=== PATIENT | female | born 1990 | race Caucasian/White ===

== ENCOUNTER → 2020-01-24 | Outpatient (CLI) | payer OTHER, SELFPAY ==
[2020-01-24 10:09] VITALS: BMI 26.2
[2020-01-27 13:15] LABS: HPV APTIMA, High Risk Negative (Negative)
== END | disposition home or self-care (01) ==
LOC: LABSPEC 14:00
PROVIDERS: Referring Provider Nurse Practitioner Women's Health; Visit Provider Nurse Practitioner Women's Health
DX: Z12.4 Encounter for screening for malignant neoplasm of cervix (principal)
CPT/HCPCS: 87624; 88175; G0145

== ENCOUNTER 2021-07-26 14:08 | Outpatient (CLI) | payer OTHER, SELFPAY ==
[2021-07-26 15:28] LABS: Absolute Lymphocyte Count 2.76 X10^3/uL (0.83-4.51); Absolute Neutrophil Count 4.7 X10^3/uL (2.0-7.7); Basophil# 0.05 X10^3/uL; Basophil% 0.6 % (0-1); Eosinophil# 0.16 X10^3/uL; Eosinophils% 1.9 % (0-5); Hematocrit 41.7 % (37-47); Hemoglobin 14.4 g/dL (12.0-15.0); Lymphocyte # 2.76 X10^3/ul (0.83-4.51); Lymphocyte % 33.5 % (19-41); Mean Corp Hgb Conc 34.5 g/dL (32-36); Mean Corpuscular Hgb 31.2 pg (27.0-32.0); Mean Corpuscular Volume 90.3 fL (81-99); Monocyte# 0.51 X10^3/uL; Monocyte% 6.2 % (0-10); NRBC Flagged by Analyzer 0 % (0-5); Neutrophil # 4.74 X10^3/uL (2.7-7.7); Neutrophil % 57.4 % (47-70); Platelet Count 341 K/mm3 (150-450); RBC Distribution Width CV 12.3 % (11.6-14.6); RBC Distribution Width SD 40.2 fl (35.1-43.9); Red Blood Count 4.62 M/mm3 (4.2-5.4); White Blood Count 8.3 K/mm3 (4.4-11.0)
[2021-07-26 16:08] LABS: AST(SGOT) 24 U/L (15-37); Alanine Aminotransfer ALT/SGPT 36 U/L (13-56); Albumin, Serum 3.7 g/dL (3.2-5.0); Alkaline Phosphatase 60 U/L (45-117); Anion Gap 5 (5-15); BUN 15 mg/dL (7-18); BUN/Creat Ratio 14.6 RATIO (10-20); Chloride 105 mmol/L (98-107); Cholesterol 208 mg/dL (200); Creatinine, Serum 1.03 mg/dL (0.55-1.02); EST Glomerular Filtration Rate 66 mL/min (>60); Est Glom Filt Rate - Afr Amer 80 mL/min (>60); Globulin 3.8 g/dL (2.2-4.2); Glucose 86 mg/dL (74-106); High Density Lipoprotein 72 mg/dL; Potassium 3.8 mmol/L (3.5-5.1); Protein, Total 7.5 g/dL (6.4-8.2); Sodium Level 137 mmol/L (136-145); Triglycerides 77 mg/dL; Very Low Density Lipoprotein 15 mg/dL (5-40)
== END 2021-07-26 23:59 | disposition home or self-care (01) ==
LOC: BIMLAB 14:09
PROVIDERS: PCP Internal Medicine; Referring Provider Internal Medicine; Visit Provider Internal Medicine
DX: Z00.00 Encounter for general adult medical examination without abnormal findings (principal)
CPT/HCPCS: 36415; 80053; 80061; 85025

== ENCOUNTER → 2022-03-04 | Outpatient (CLI) | payer OTHER, SELFPAY ==
--- NOTE | 2022-03-04 16:01 | BI_ITS ---
MAMMOGRAPHY - BILATERAL SCREENING REASON FOR EXAM: Female, 31 years old. Routine annual screening examination. PERTINENT HISTORY: Non-contributory. TECHNIQUE: Digital bilateral breast gina (3D mammographic acquisition) in the CC and MLO projections. 2-D mediolateral oblique (MLO) and craniocaudad (CC) views of both breasts were obtained. CAD: Full Field Digital Mammography with Computer Added Detection was performed. COMPARISON: None. Baseline examination. FINDINGS: Breast Composition: The breasts are extremely dense, which lowers the sensitivity of mammography. There are no dominant masses or suspicious calcifications. No other significant abnormalities are identified. BI/SCRN MAMM (CAD)W/GINA BILAT IMPRESSION: Negative screening mammogram. Yearly followup mammogram recommended. (A) ASSESSMENT CATEGORY: BIRADS Category 1: Negative. A letter regarding these results will be sent to the patient by the facility within 30 days. Approximately 10% of breast cancers are not detected by mammography. A normal mammogram should not delay biopsy of a clinically suspicious abnormality. [id number] Electronically Signed: Armand Herron MD at 21:22 EDT ,
== END | disposition home or self-care (01) ==
LOC: OPBI 15:58
PROVIDERS: PCP Internal Medicine; Visit Provider Obstetrics & Gynecology
DX: Z12.31 Encounter for screening mammogram for malignant neoplasm of breast (principal); Z80.3 Family history of malignant neoplasm of breast
CPT/HCPCS: 77063; 77067

== ENCOUNTER → 2022-04-22 | Outpatient (CLI) | payer OTHER, SELFPAY ==
[2022-04-22 11:46] LABS: Vitamin D,25 Hydroxy 31.9 ng/mL
[2022-04-22 11:48] LABS: Cholesterol 187 mg/dL (200); Glucose 108 mg/dL (74-106); High Density Lipoprotein 70 mg/dL; Thyroid Stim Hormone (TSH) 1.46 uIU/mL (0.358-3.74); Triglycerides 72 mg/dL; Very Low Density Lipoprotein 14 mg/dL (5-40)
== END | disposition home or self-care (01) ==
PROVIDERS: PCP Internal Medicine; Referring Provider Obstetrics & Gynecology; Visit Provider Obstetrics & Gynecology
DX: Z13.1 Encounter for screening for diabetes mellitus (principal); Z13.21 Encounter for screening for nutritional disorder; Z13.29 Encounter for screening for other suspected endocrine disorder; Z13.220 Encounter for screening for lipoid disorders
CPT/HCPCS: 36415; 80061; 82306; 82947; 84443

== ENCOUNTER → 2022-10-06 | Outpatient (CLI) | payer OTHER, SELFPAY ==
[2022-10-06 08:22] LABS: Cholesterol 181 mg/dL (200); Glucose 99 mg/dL (74-106); High Density Lipoprotein 68 mg/dL; Thyroid Stim Hormone (TSH) 1.88 uIU/mL (0.358-3.74); Triglycerides 62 mg/dL; Very Low Density Lipoprotein 12 mg/dL (5-40)
[2022-10-09 17:07] LABS: 17-Hydroxyprogesterone 123 ng/dL (.)
[2022-10-10 13:08] LABS: Testosterone, % Free 1.29 % (0.50-2.80); Testosterone, Free 0.65 ng/dL (0.10-0.85); Testosterone, Total 50 ng/dL (8-60)
== END | disposition home or self-care (01) ==
LOC: PAVLAB 07:31
PROVIDERS: PCP Internal Medicine; Referring Provider Obstetrics & Gynecology; Visit Provider Obstetrics & Gynecology
DX: N92.6 Irregular menstruation, unspecified (principal); E28.2 Polycystic ovarian syndrome
CPT/HCPCS: 36415; 80061; 82627; 82947; 83498; 84146; 84402; 84403; 84443; 82626

== ENCOUNTER → 2025-03-03 | Outpatient (CLI) | payer OTHER, SELFPAY ==
[2025-03-03 14:54] LABS: Cholesterol 197 mg/dL (<=200); Glucose 96 mg/dL (70-99); Low Density Lipoprotein Calc. 113 mg/dL; Triglycerides 74 mg/dL; Very Low Density Lipoprotein 15 mg/dL (5-40); Vitamin D,25 Hydroxy 36.2 ng/mL (30-100); cholesterol:hdl ratio screen 2.85
[2025-03-08 11:08] LABS: HPV APTIMA, High Risk Negative (Negative)
== END | disposition home or self-care (01) ==
LOC: LAB 12:53
PROVIDERS: PCP Nurse Practitioner Family; Referring Provider Obstetrics & Gynecology; Visit Provider Obstetrics & Gynecology
DX: Z13.220 Encounter for screening for lipoid disorders (principal); Z12.4 Encounter for screening for malignant neoplasm of cervix; Z13.1 Encounter for screening for diabetes mellitus; Z13.29 Encounter for screening for other suspected endocrine disorder; E28.2 Polycystic ovarian syndrome; N92.6 Irregular menstruation, unspecified
CPT/HCPCS: 36415; 80061; 82306; 82627; 82947; 84443; 87624; 88175; 82626; G0145

== ENCOUNTER → 2025-04-03 | Outpatient (CLI) | payer OTHER, SELFPAY | END | disposition home or self-care (01) | PROVIDERS: PCP Nurse Practitioner Family; Visit Provider Obstetrics & Gynecology | DX: N92.6 Irregular menstruation, unspecified (principal) | CPT/HCPCS: 36415 ==

== ENCOUNTER → 2025-04-21 | Outpatient (CLI) | payer OTHER, SELFPAY ==
--- OUTSIDE RECORDS SUMMARY | 2025-04-21 08:14 | XMS RPT_ITS | CCD ---
Author Organization [facility] CliniSynd Care Team Providers Care Powder Core Tester Name Role Phone YOSEPH COLIN Admitting Unavailable YOSEPH COLIN Attending Unavailable YOSEPH COLIN Primary Care Unavailable NO, DOCTOR ON Consulting Unavailable Dr. Irlanda Doran Primary Care Provider [phone] Jessi Carmona Attending Provider Unavailable Care Physician, No Primary Referring Provider Un available Dr. Barbara Prince Attending Provider 1([phone]) Irlanda Doran MD Primary Care Provider 1(3 30) Care Physician, No Primary Referring Provider Un available Dr. Barbara Prince Attending Provider 1(3 30) Dr. Irlanda Doran Primary Care Provider [phone] Dr. Irlanda Doran Primary Care Provider 1(33 [phone]) Dr. Irlanda Doran Referring Provider [phone] Dr. Barbara Prince Attending Provider 1(3 30) Irlanda Doran MD Primary Care Provider 1(3 30) Irlanda Doran MD Primary Care Provider [phone] Andrew DAVIS, Lilliam Brunner Unavailable Unavailable [facility] ED, Maegan T Unavailable Gillian vailable [employer] Referring Unavailable ESPINOZA, EFEWONGBE B Primary Care Unavailable [employer] Attending Unavailable GERALDINE DICKINSON Referring Unavailable OLEGHE, EFEWONGBE B Primary Care Unavailable ESPINOZA, EFEWONGBE B Primary Care Unavailable [facility] ED, Maegan T Unavailable Gillian vailagonzalez Doran MD, Dr. Denton Primary Care Physician Espinoza OSBORN, Dr. Denton Referring Provider [phone] Dr. Barbara Prince DO Attending Physician Magdy [employer], [facility] Physician [phone] Dr. Barbara Prince DO Referring Provider Barbara Prince Attending Irlanda Augustin Primary Care Unavailable Irlanda Doran Referring Unavailable [facility], [facility] UnavailBarbara Chapman Attending Barbara Zamora Referring Kelsea e [facility], [facility] Barbara Zamora Attending Kelsea e Allergies Allergy Classification Reported Allergen(s) Allergy Type Date of Onset Reaction(s) Facility (17 sources) Amoxicillin; Translations: [AMOXICILLIN] Drug Allergy 08-11-2005 [facility] Work Phone: (5 sources) Penicillins Allergy to substance 02-20-[address] [facility] (12 sources) Penicillin; Translations: [PENICILLIN] Drug Allergy 11-11-2016 [facility] (1 source) Amoxicillin Drug Allergy 03-03-2025 [facility] (1 source) Penicillins Drug allergy (disorder) 03-03-2025 [facility] Medications Current Medications Medication Drug Class(es) Dates Sig (Normalized) Sig (Original) Allgood (Nk) (5 sources) Start: 10-01-2022 Allgood (Nk) A ctive October 01, 2022 12:00am Start: 02-20-2022 Allgood (Nk) A ctive February 19, 2022 11:00pm Start: 02-20-2022 Allgood (Nk) A ctive February 20, 2022 12:00am Completed/Discontinued Medications Medication Drug Class(es) Dates Sig (Normalized) Sig (Original) 21 day ethinyl estradiol 0.128544 mg/hr / etonogestrel 0.005 mg/hr vaginal system (10 sources) Progestin, Estrogen Start: 01-24-2020 End: 07-26-2021 Etonogestrel-Ethiny l Estradiol (Nuvaring) 0.12-0.015 mg/24 hr ring Discontinued 1 NMA VAGINAL every 4 weeks 3 4 February 19, 2021 1:47pm July 26, 2021 2:48pm Polycystic ovarian syndrome Start: 01-24-2020 End: 07-26-2021 Etonogestrel-Ethinyl Estradi ol (Nuvaring) 0.12-0.015 mg/24 hr ring Discontinued 1 VAG RING VAGINAL every 4 weeks February 19, 2021 1:47pm July 26, 2021 2:48pm medroxyPROGESTERone acetate 10 mg oral tablet (11 sources) Progestin Start: 07-23-2017 End: 06-09-2024 take 1 tablet by mouth once daily Medroxyprogesterone (Provera) 10 mg tablet Discontinued 10 mg PO DAILY 10 07June 09, 2022 1:00am October 01, 2022 10:15am Comment on above: Take 1 tablet by leona th once daily. Problems Active Problems Problem Classification Problem Date Documented Da te Episodic/Chronic Immunizations and screening for infectious disease (2 sources) Needs influenza immunization; Translations: [Encounter for immunization] Episodic Menstrual disorders (20 sources) Irregular periods; Translations: [Irregular menstruation, unspecified] Onset: 05-23-2009 Resolved: 06-09-2024 01-24-2010 Chronic Other endocrine disorders (17 sources) Polycystic ovary syndrome; Translations: [Polycystic ovarian syndrome] Onset: 01-24-2010 01-24-2010 Chronic Other endocrine disorders (2 sources) Polycystic ovarian syndrome; Translations: [Polycystic ovaries] Onset: 03-10-2025 10-01-2022 Chronic Other screening for suspected conditions (not mental disorders or infectious disease) (2 sources) Cancer cervix screening status; Translations: [Encounter for screening for malignant neoplasm of cervix] Onset: 09-19-2024 06-09-2024 Episodic Residual codes; unclassified (9 sources) Family history of malignant neoplasm of breast diagnosed before 45 years of age; Translations: [Family history of malignant neoplasm of breast] Onset: 02-20-2022 01-24-2020 Episodic Comment on above: 2 first cousins age 30 Residual codes; unclassified (2 sources) Family history of breast cancer; Translations: [Family history of malignant neoplasm of breast] 06-09-2024 Episodic Residual codes; unclassified (1 source) Family history of malignant neoplasm of breast; Translations: [Family hx-breast malignancy] Onset: 09-19-2024 Episodic Past or Other Problems Problem Classification Problem Date Documented Da te Episodic/Chronic Administrative/social admission (9 sources) Patient encounter status; Translations: [Persons encountering health services in other specified circumstances] Onset: 06-09-2024 02-19-2024 Episodic Allergic reactions (10 sources) Allergy to penicillin; Translations: [Allergy status to penicillin] Onset: 12-14-2008 Resolved: 09-04-2014 08-10-2023 Episodic Other and unspecified benign neoplasm (9 sources) Benign neoplasm of skin of trunk; Translations: [Other benign neoplasm of skin of trunk] Onset: 12-14-2008 Resolved: 09-04-2014 09-04-2014 Episodic Other and unspecified benign neoplasm (9 sources) Benign neoplasm of skin of upper limb; Translations: [Other benign neoplasm of skin of unspecified upper limb, including shoulder] Onset: 12-14-2008 Resolved: 09-04-2014 09-04-2014 Episodic Other and unspecified benign neoplasm (9 sources) Benign neoplasm of skin of lower limb; Translations: [Other benign neoplasm of skin of unspecified lower limb, including hip] Onset: 12-14-2008 Resolved: 09-04-2014 09-04-2014 Episodic Other skin disorders (11 sources) Acne; Translations: [Other acne] Onset: 12-14-2008 Resolved: 06-09-2024 12-14-2008 Episodic Other skin disorders (9 sources) Disorder of skin pigmentation; Translations: [Disorder of pigmentation, unspecified] Onset: 12-14-2008 Resolved: 09-04-2014 09-04-2014 Episodic Results Test Name Value Interpretation Reference Range Facility L900.0111on 04-03-2025 REPROSOURCE SEE SCANNED REPORT Normal [facility] Comment on above: Performed By: #### L 900.0111 #### [facility] [address] [place], [address] PAP IG HPV APTIMA 16/18,45on 03-08-2025 ADEQ Comment Normal . [facility] Comment on above: Order Comment: Speci men Comment: [id number] Specimen Comment: Source.............Cervix Specimen Comment: No. of containers..01 ThinPrep Vial Result Comment: Sati sfactory for evaluation. No endocervical component is identified. Performed By: #### L 7400.0280 #### [facility] [address] [place], [place], [id number] COMM . Normal . [facility] Comment on above: Order Comment: Speci men Comment: [id number] Specimen Comment: Source.............Cervix Specimen Comment: No. of containers..01 ThinPrep Vial Performed By: #### L 7400.0280 #### [facility] [address] [place], [place], [id number] COMMENT Comment Normal . [facility] Comment on above: Order Comment: Speci men Comment: [id number] Specimen Comment: Source.............Cervix Specimen Comment: No. of containers..01 ThinPrep Vial Result Comment: This liquid based ThinPrep(R) pap test was interpreted using the M2G(R) Genius(TM) Cervical Algorithm whole slide imaging system. Performed By: #### L 7400.0280 #### [facility] [address] [place], [place], [id number] DIAG Comment Normal . [facility] Comment on above: Order Comment: Speci men Comment: [id number] Specimen Comment: Source.............Cervix Specimen Comment: No. of containers..01 ThinPrep Vial Result Comment: NEGA TIVE FOR INTRAEPITHELIAL LESION OR MALIGNANCY. Performed By: #### L 7400.0280 #### [facility] [address] [place], [place], [address] HPV APTIMA, HR Negative Normal Negative [facility] Comment on above: Order Comment: Speci men Comment: [id number] Specimen Comment: Source.............Cervix Specimen Comment: No. of containers..01 ThinPrep Vial Result Comment: This nucleic acid amplification test detects fourteen high- risk HPV types (16,18,31,33,35,39,45,51,52,56,58,59,66,68) without differentiation. Performed By: #### L 7400.0280 #### [facility] [address] [place], [address] HPV Fabby Rfx Comment Normal . [facility] Comment on above: Order Comment: Speci men Comment: [id number] Specimen Comment: Source.............Cervix Specimen Comment: No. of containers..01 ThinPrep Vial Result Comment: Crit erranjit not met, HPV Genotype not performed. Performed at: [address] [id number] High Density Finishing Operator: Emely Molina MD, Phone: [phone] Performed at: = - [address] [id number] High Density Finishing Operator: Emely Molina MD, Phone: [phone] Performed By: #### L 7400.0280 #### [facility] [address] [place], [address] PAPSMR Comment Normal . [facility] Comment on above: Order Comment: Speci men Comment: [id number] Specimen Comment: Source.............Cervix Specimen Comment: No. of containers..01 ThinPrep Vial Result Comment: The Pap smear is a screening test designed to aid in the detection of premalignant and malignant conditions of the uterine cervix. It is not a diagnostic procedure and should not be used as the sole means of detecting cervical cancer. Both false-positive and false-negative reports do occur. Performed By: #### L 7400.0280 #### [facility] [address] [place], [address] PERFORM Comment Normal . [facility] Comment on above: Order Comment: Speci men Comment: [id number] Specimen Comment: Source.............Cervix Specimen Comment: No. of containers..01 ThinPrep Vial Result Comment: Abby Lino, Physician Advisor (ASCP) Performed By: #### L 7400.0280 #### [facility] [address] [place], [place], [id number] DHEA Sulfateon 03-05-2025 DHEA SULFATE 162.0 ug/dL Normal 57.3-279.2 [facility] Comment on above: Order Comment: N Result Comment: Perf ormed at: - [facility] [id number] High Density Finishing Operator: Jose Alejandro Meza PhD, Phone: [phone] Performed By: #### L 500.4100, L501.9520, L501.0100, L3300.1500, L506.1001 #### [facility] [address] [place], [place], [id number] Calculated very low density lipoprotein (VLDL) cholesterol measurementOrdered By: Barbara Elizabeth on 03-03-2025 Calculated very low density lipoprotein (VLDL) cholesterol measurement 15 mg/dL 5-40 [facility] Cervical or vaginal specimen microscopic examination by liquid based cytology (reportOrdered By: Barbara Elizabeth on 03-03-2025 Cytology report Cyto stain.thin prep Doc (Cvx/Vag) Comment . [facility] Comment on above: Criteria not met, HP V Genotype not performed.Performed at: [facility] [id number] Director: Emely Molina MD, Phone: [phone] at: =[address] [id number] Director: Emely Molina MD, Phone: [phone] Cervical or vagninal specime n microscopic examination by cytology stain (reported asOrdered By: Barbara Elizabeth on 03-03-2025 Cytology report Cyto stain Doc (Cvx/Vag) Comment . [facility] Comment on above: The Pap smear is a s creening test designed to aid in thedetection of premalignant and malignant conditions of theuterine cervix. It is not a diagnostic procedure andshould not be used as the sole means of detecting cervicalcancer. Both false-positive and false-negative reports dooccur. Detection in cervical specim en of any of human papilloma virus (HPV) 16, 18, 31, 33,Ordered By: Barbara Elizabeth on 03-03-2025 HPV 16+18+31+33+35+39+45+5 1+52+56+58+59+66+68 DNA Probe+sig amp Ql (Cvx) Negative Negative [facility] Comment on above: This nucleic acid am plification test detects fourteen high- risk HPV types (16,18,31,33,35,39,45,51,52,56,58,59,66,68)without differentiation. Glucoseon 03-03-2025 Glucose [Mass/Vol] 96 mg/dL Normal 70-99 [facility] Comment on above: Performed By: #### L 500.4100, L501.9520, L501.0100, L3300.1500, L506.1001 #### [facility] [address] [place], [place], [id number] LDL calc ser/plasOrdered By: Barbara Elizabeth on 03-03-2025 Cholesterol in LDL [Mass/Vol] 113 mg/dL [facility] Comment on above: Gvtycblpew=276-858 m g/dL & Higher Ockr=348 mg/dL or greaterFriedwald Equation for LDL-C Laboratory - CytologyOrdered By: Barbara Elizabeth on 03-03-2025 Physician Advisor Cyto stain Nom (Cvx/Vag) [ID] Comment . [facility] Comment on above: Odalis Lino Cytolog ist (ASCP) Laboratory - Miscellaneous t estsOrdered By: Barbara Elizabeth on 03-03-2025 Service comment (Unsp spec) [Interp] . . [facility] Lipid Profileon 03-03-2025 CHOL:HDL 2.[address] [facility] Comment on above: Performed By: #### L 500.4100, L501.9520, L501.0100, L3300.1500, L506.1001 #### [facility] [address] [place], [address] Cholesterol [Mass/Vol] 197 mg/dL Normal <=200 [facility] Comment on above: Result Comment: Chol esterol level, Desirable <200 mg/dL Borderline high cholesterol 200-239 mg/dL High cholesterol >=240 mg/dL Recommendations of the NCEP Adult Treatment Panel for the following risk-cutoff thresholds for the [place] population. Performed By: #### L 500.4100, L501.9520, L501.0100, L3300.1500, L506.1001 #### [facility] [address] [place], [address] Cholesterol in HDL [Mass/Vol] 69 mg/dL Normal [facility] Comment on above: Result Comment: Natalie onal Cholesterol Education Program (NCEP) guidelines: <40 mg/dL: Low HDL-cholesterol (major risk factor for CHD) >= 60 mg/dL: High HDL-cholesterol (negative risk factor for CHD) HDL-cholesterol is affected by a number of factors, e.g. smoking, exercise, hormones, sex and age. Performed By: #### L 500.4100, L501.9520, L501.0100, L3300.1500, L506.1001 #### [facility] [address] [place], [address] Cholesterol in LDL [Mass/Vol] 113 mg/dL Normal [facility] Comment on above: Result Comment: Bord nrcceb=621-735 mg/dL Higher Wglc=931 mg/dL or greater Friedwald Equation for LDL-C Performed By: #### L 500.4100, L501.9520, L501.0100, L3300.1500, L506.1001 #### [facility] [address] [place], [address] Cholesterol in VLDL [Mass/Vol] 15 mg/dL Normal 5-40 [facility] Comment on above: Performed By: #### L 500.4100, L501.9520, L501.0100, L3300.1500, L506.1001 #### [facility] [address] [place], [address] Triglyceride [Mass/Vol] 74 mg/dL Normal [facility] Comment on above: Result Comment: The drugs N-Acetylcysteine and Metamizole may falsely depress this assay. Normal range: <150 mg/dL Borderline High: 150-199 mg/dL High: 200-499 mg/dL Very High: >500 mg/dL Performed By: #### L 500.4100, L501.9520, L501.0100, L3300.1500, L506.1001 #### [facility] [address] [place], [place], [address] No Panel InformationOrdered By: Barbara Elizabeth on 03-03-2025 Pap Smear Specimen Adequacy Comment . [facility] Comment on above: Satisfactory for shakir luation. No endocervical component is identified. Retail Salesman Office Visit Reporton 03-03-2025 Retail Salesman Office Visit Report [facility] [address], [address] [place] [address] OFFICE VISIT Date of Service: 03/03/25 MR#: [id number] Acct: [id number] Name: MAEGAN COLIN Rep #: [id number] : 1990 Provider: Dr. 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 Required: No Is patient in pain?: No Allergies amoxicillin Allergy (Mild, Verified 03/03/25 11:25) rash Penicillins Allergy (Mild, Verified 03/03/25 11:25) Unknown Medications ???Medication ???Instructions ???Recorded ???Confirmed ???Type NK 10/01/22 03/03/25 History Post menopausal: No Patient : No : No PFSH Medical History PCOS (polycystic ovarian syndrome) Family History Mother Thyroid disorder Other Breast cancer Social History Smoking Status: Never smoker alcohol intake: current alcohol intake frequency: a few times a week substance use type: does not use caffeine: Yes what type of physical activity do you participate in: walking, weight training and other frequency: 3-4 times per week seatbelt use: always do you feel safe at home: Yes additional social history: Single-Works at [employer] History 0 Elective abortions Hx Para Spontaneous abortions Hx # Term Pregnancies Ectopic pregnancies Hx # Pregnancies Multiple births # of living children HPI Encounter for routine gynecological examination Details: MAEGAN COLIN is a 34 year old who presents for annual exam. 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 has pcos and wants to get soon. She is interested in ORA and wants to get baseline labs done. Last PAP: 2023- [facility] History of abnormal PAP: yes Last mammogram: august 2023- dense breasts History of abnormal mammogram: just dense Colon cancer screening: n/a Other preventative health care screenings: followed by pcp Female Reproductive History Cycle Length: 21-35 Bleeding Duration: 5 Questions: metrorrhagia: No, sexually active: Yes, dyspareunia: No and PCB: No Menopausal Symptoms: No hot flashes, No night sweats, No weight change, No mood changes, No difficulty concentrating, No sleep problems and No change in libido ROS Const Constitutional: Reports as per HPI; Denies fatigue, increased appetite, poor appetite, night sweats, weight gain or weight loss Cardio Card: Denies chest pain Resp Resp: Denies cough or dyspnea GI GI: Reports as per HPI; Denies abdominal pain, bloating, constipation, nausea or vomiting : Reports as per HPI and other; Denies difficulty voiding, dysuria, hematuria, hot flashes, nipple discharge, pelvic pain, prolapse symptoms, urinary frequency, urinary incontinence, urinary urgency, vaginal discharge, vaginal dryness, vaginal odor or vaginal pruritus Skin Skin/Breast: Denies changing lesions, breast mass, breast pain, breast skin changes or nipple discharge Psych Psych: Denies anxiety, change in libido, depression or difficulty concentrating Exam Const General: cooperative, healthy appearing, comfortable, no acute distress, well developed and well groomed [facility] Head: normal to inspection and normocephalic Ears: hearing grossly normal bilaterally and external ears normal Nose: external nose normal Face and sinus: normal facial exam Neck Neck: normal visual inspection, full ROM and no lymphadenopathy Thyroid: thyroid normal Chest Chest palpation inspection: normal inspection of the chest Breast inspection: normal inspection of the breasts and normal inspection of the axillae Breast palpation: normal palpation of the breasts, normal palpation of the axillae and no axillary lymphadenopathy Resp Effort Inspection: normal respiratory effort GI Inspection: normal to inspection and non-distended Palpation: soft, no hepatosplenomegaly and no guarding General: bladder normal to palpation External Female Exam: normal external appearance, normal appearance of the urethra and no lesions Urethra: normal appearance of the urethra and normal palpation Speculum Exam - Vagina: normal appearance of the vagina and normal vaginal discharge Speculum Exam - Cervix: normal appearance of the cervix, no cervical discharge, no lesions and nontender Bimanual Exam- Vagina Uterus: normal bimanual exam, uterine size normal, bladder normal to palpation, No tender, uterine mobility normal, consistency normal, non-tender and no cervic (more content not included)... Normal [facility] Screening total cholesterol/ high density lipoprotein (HDL) cholesterol ratioOrdered By: Barbara Elizabeth on 03-03-2025 Cholesterol.total/Chol esterol in HDL [Mass ratio] 2.85 {ratio} [facility] Serum glucose measurement (m ass/volume)Ordered By: Barbara Elizabeth on 03-03-2025 Glucose [Mass/Vol] 96 mg/dL 70-99 [facility] Serum or plasma cholesterol in HDL measurement (mass/volume)Ordered By: Barbara Elizabeth on 03-03-2025 Cholesterol in HDL [Mass/Vol] 69 mg/dL >40 [facility] Comment on above: National Cholesterol Education Program (NCEP) guidelines:<40 mg/dL: Low HDL-cholesterol (major risk factor for CHD)>= 60 mg/dL: High HDL-cholesterol (negative risk factor for CHD)HDL-cholesterol is affected by a number of factors, e.g. smoking, exercise, hormones, sex and age. Serum or plasma cholesterol measurement (mass/volume)Ordered By: Barbara Elizabeth on 03-03-2025 Cholesterol [Mass/Vol] 197 mg/dL <201 [facility] Comment on above: Cholesterol level, D esirable <200 mg/dLBorderline high cholesterol 200-239 mg/dLHigh cholesterol >=240 mg/dLRecommendations of the NCEP Adult Treatment Panel for the following risk-cutoff thresholds for the [place] population. TSH DL <= 0.005 mIU/L QnOrde red By: Barbara Elizabeth on 03-03-2025 TSH Qn 0.977 uIU/mL 0.300-4.200 [facility] Thyroid Stim Hormone (TSH)on 03-03-2025 TSH 0.977 uIU/mL Normal 0.300-4.200 [facility] Comment on above: Performed By: #### L 500.4100, L501.9520, L501.0100, L3300.1500, L506.1001 #### [facility] [address] [place], [place], [id number] Triglycerides measurementOrd ered By: Barbara Elizabeth on 03-03-2025 Triglyceride [Mass/Vol] 74 mg/dL <199 [facility] Comment on above: The drugs N-Acetylcy steine and Metamizole may falsely depress this assay. Normal range: <150 mg/dLBorderline High: 150-199 mg/dLHigh: 200-499 mg/dLVery High: >500 mg/dL Vitamin D,25 Hydroxyon 03-03 Vitamin D 25-OH 36.2 ng/mL Normal 30-100 [facility] Comment on above: Result Comment: Josie min D Status Deficiency: <20 ng/mL (50nmol/L) Insufficiency: 20-30 ng/mL (50-75 nmol/L) Sufficiency: 30-100 ng/mL (75-250 nmol/L) Toxicity: >100 ng/mL (>250 nmol/L) Performed By: #### L 500.4100, L501.9520, L501.0100, L3300.1500, L506.1001 #### [facility] [place] [address], [address] DBT Breast - bilateral theron saunders 09-21-2024 IMPRESSION: There is no mammographic evidence of malignancy in either breast. Routine screening mammogram is recommended. Annual mammogram will be due at age 40. BI-RADS Category 1: Negative RISK: Based on the Tyrer-Cuzick (TC) risk assessment model, this patient has a 15.2% lifetime risk of developing breast cancer, meaning they are at average risk for developing breast cancer. However, this is only an estimate based on available history provided on the patient's questionnaire. We encourage all patients to talk with their providers about these results, further recommendations for managing breast health, and appropriate supplemental screening options if the patient has dense breast tissue. Interpreting Radiologist: Mary Kay Jean M.D. Resident/Fellow: Nini Llanes D.O. Electronically signed on: 09/21/2024 Film Drying Machine Operator: REI Transcrinba Date/Time: Sep 19 2024 9:29A Dictated by: NINI LLANES DO This examination was interpreted and the report reviewed and electronically signed by: MARY KAY JEAN MD on Sep 21 2024 1:20PM [facility] DIVISION OF RADIOLOGY * * *Final Report* * * DATE OF EXAM: Sep 19 2024 10:12AM [facility] 0582 - MIRANDA SCREENING W GINA / PROCEDURE REASON: multiple diagnoses * * * * Physician Interpretation * * * * RESULT: [address] [address] [place] [address] #[id number] - MIRANDA SCREENING W GINA HISTORY: 34 year-old patient seen for screening. Patient is asymptomatic in both breasts. Patient states no personal history of breast cancer. The patient has a family history of breast cancer. COMPARISON STUDIES: The present examination has been compared to a prior imaging study dated 03/04/2022 (mammogram). MAMMOGRAM TECHNIQUE: The study was acquired using full field digital technology and interpreted from soft copy. Digital Breast Tomosynthesis (DBT) images were obtained and used to assist in the interpretation of this examination. MAMMOGRAM FINDINGS: The breasts are extremely dense, which lowers the sensitivity of mammography. No suspicious masses, calcifications or other abnormalities are seen in either breast. There are no significant interval changes. DIVISION OF RADIOLOGY Provider, [facility] - 09/21/2024 * * *Final Report* * * DATE OF EXAM: Sep 19 2024 10:12AM [facility] 0582 - [facility] SCREENING W GINA / PROCEDURE REASON: multiple diagnoses * * * * Physician Interpretation * * * * RESULT: [facility] [address] [id number] #[id number] - [facility] SCREENING W GINA HISTORY: 34 year-old patient seen for screening. Patient is asymptomatic in both breasts. Patient states no personal history of breast cancer. The patient has a family history of breast cancer. COMPARISON STUDIES: The present examination has been compared to a prior imaging study dated 03/04/2022 (mammogram). MAMMOGRAM TECHNIQUE: The study was acquired using full field digital technology and interpreted from soft copy. Digital Breast Tomosynthesis (DBT) images were obtained and used to assist in the interpretation of this examination. MAMMOGRAM FINDINGS: The breasts are extremely dense, which lowers the sensitivity of mammography. No suspicious masses, calcifications or other abnormalities are seen in either breast. There are no significant interval changes. IMPRESSION IMPRESSION: There is no mammographic evidence of malignancy in either breast. Routine screening mammogram is recommended. Annual mammogram will be due at age 40. BI-RADS Category 1: Negative RISK: Based on the Tyrer-Cuzick (TC) risk assessment model, this patient has a 15.2% lifetime risk of developing breast cancer, meaning they are at average risk for developing breast cancer. However, this is only an estimate based on available history provided on the patient's questionnaire. We encourage all patients to talk with their providers about these results, further recommendations for managing breast health, and appropriate supplemental screening options if the patient has dense breast tissue. Interpreting Radiologist: Mary Kay Jean M.D. Resident/Fellow: Nini Llanes D.O. Electronically signed on: 09/21/2024 Film Drying Machine Operator: REI Transcribe Date/Time: Sep 19 2024 9:29A Dictated by: NINI LLANES DO This examination was interpreted and the report reviewed and electronically signed by: MARY KAY JEAN MD on Sep 21 2024 1:20PM EST [facility] DBT Breast - bilateral scree ningOrdered By: [facility] Provider on 09-21-2024 [facility] DBT Breast - bilateral scree diptigon 09-19-2024 Radiology Study observation (narrative) [facility] MIRANDA SCREENING W TOMOon 09-19 MIRANDA SCREENING W GINA * * *Final Report* * * DATE OF EXAM: Sep 19 2024 10:12AM [facility] 0582 - MIRANDA SCREENING W GINA / PROCEDURE REASON: multiple diagnoses * * * * Physician Interpretation * * * * RESULT: [place] [address] #[id number] - MIRANDA SCREENING W GINA HISTORY: 34 year-old patient seen for screening. Patient is asymptomatic in both breasts. Patient states no personal history of breast cancer. The patient has a family history of breast cancer. COMPARISON STUDIES: The present examination has been compared to a prior imaging study dated 03/04/2022 (mammogram). MAMMOGRAM TECHNIQUE: The study was acquired using full field digital technology and interpreted from soft copy. Digital Breast Tomosynthesis (DBT) images were obtained and used to assist in the interpretation of this examination. MAMMOGRAM FINDINGS: The breasts are extremely dense, which lowers the sensitivity of mammography. No suspicious masses, calcifications or other abnormalities are seen in either breast. There are no significant interval changes. IMPRESSION: There is no mammographic evidence of malignancy in either breast. Routine screening mammogram is recommended. Annual mammogram will be due at age 39. BI-RADS Category 1: Negative RISK: Based on the Tyrer-Cuzick (TC) risk assessment model, this patient has a 15.2% lifetime risk of developing breast cancer, meaning they are at average risk for developing breast cancer. However, this is only an estimate based on available history provided on the patient's questionnaire. We encourage all patients to talk with their providers about these results, further recommendations for managing breast health, and appropriate supplemental screening options if the patient has dense breast tissue. Interpreting Radiologist: Mary Kay Jean M.D. Resident/Fellow: Nini Llanes D.O. Electronically signed on: 09/21/2024 Film Drying Machine Operator: REI Transcrinba Date/Time: Sep 19 2024 9:29A Dictated by: NINI LLANES DO This examination was interpreted and the report reviewed and electronically signed by: MARY KAY JEAN MD on Sep 21 2024 1:20PM EST [id number] [facility] QUANTTBon 09-15-2024 QFT Criteria Comment [facility] MAIN Comment on above: Result Comment: QuantiFERON-TB Gold Plus is a qualitative indirect test for M tuberculosis infection (including disease) and is intended for use in conjunction with risk assessment, radiography, and other medical and diagnostic evaluations. The QuantiFERON-TB Gold Plus result is determined by subtracting the Nil value from either TB antigen (Ag) value. The Mitogen tube serves as a control for the test. Performed By: #### 1 [id number] #### [address] [address] QFT Mitogen Value >10.00 [facility] Comment on above: Performed By: #### 1 [id number] #### [address] [address] QFT Nil Value 0.03 IU/mL [facility] Comment on above: Performed By: #### 1 [id number] #### [address] [place] [address] QFT TB1 Ag Value 0.05 IU/mL [facility] Comment on above: Performed By: #### 1 [id number] #### [address] [address] QFT TB2 Ag Value 0.06 IU/mL [facility] Comment on above: Performed By: #### 1 [id number] #### [address] [place] [address] QFT-TB Gold Plus Clt Inc Negative Normal Negative [facility] Comment on above: Result Comment: No r esponse to M tuberculosis antigens detected. Infection with M tuberculosis is unlikely, but high risk individuals should be considered for additional testing (ATS/IDSA/CDC Clinical Practice Guidelines, 2017). The reference range is an Antigen minus Nil result of <0.35 IU/mL. The specimen received for QuantiFERON testing was incubated by the ordering institution. Specific procedures outlined in our Directory of Services and in the package insert for the QuantiFERON Gold (In Tube) test must be followed to enable for proper stimulation of cells for the production of interferon gamma. Chemiluminescence immunoassay methodology Performed At: [address] [id number] Susana Blount PhD Ph:[phone] Performed By: #### 1 [id number] #### [place] [address] HBSABon 09-13-2024 Hep B Surf Ab 228.4 mIU/mL Normal >=10.0 [facility] Comment on above: Result Comment: 0 to < 10.0 mIU/mL Nonreactive Patient is considered not to have protective immunity to HBV infection >/= 10.0 mIU/mL Reactive Patient is considered to have protective immunity to HBV infection. This assay is traceable to the World Health Organization (WHO) Hepatitis B Immunoglobulin 1st International Reference Preparation (1976). The accepted criteria for immunity to HBV is anti-HBs activity >/= 10.0 mIU/mL, as defined by the WHO International Reference Preparation. Performed By: #### H VANE HAYS VARIS, RUBIS #### [address] [address] RUBEOon 09-13-2024 Rubeola IgG Ab Positive Normal [facility] Comment on above: Result Comment: INTE RPRETATION OF RUBEOLA (MEASLES) IgG BY EIA: Negative: No detectable Measles IgG antibody. Presumed non-immune to measles virus. Positive: Measles IgG antibody Detected. Presumed immune to measles virus. If clinically indicated, order Measles IgM to rule out active infection. Equivocal: Equivocal for antibodies to Measles. Suggest repeat testing 10-14 days. Performed By: #### H VANE HAYS VARIS, RUBIS #### [address] [place] [address] RUBISon 09-13-[address] Positive Normal Positive [facility] Comment on above: Result Comment: This immune status assay detects IgM and/or IgG antibody to Rubella. Interpret results in conjunction with clinical history. POS: Antibody detected; exposure at undetermined recent or distant time. If clinically indicated, order Rubella IGM to rule out recent infection. NEG: No antibody detected. Performed By: #### H VANE HAYS VARIS, RUBIS #### [address] [address] VARISon 09-13-[address] Positive Normal [facility] Comment on above: Result Comment: INTE RPRETATION OF VARICELLA IMMUNE STATUS IgG BY EIA: Negative: No detectable VZV IgG antibody. Positive: VZV IgG antibody Detected. If clinically indicated, order Varicella IgM to rule out recent infection. Equivocal: Equivocal for antibodies to VZV. Suggest repeat testing in 10-14 days. 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 Transfer from [place] Nataly is a 33 year old who presents for an annual gynecologic exam without complaints. Getting in September, plans on trying for right away. Age at Menarche: 15 Still get period: Yes LMP: 05/09/2024 Menses: cycles every 32-35 days and 5 days of flow Menstrual flow: Moderate Bleeding amount bothersome: Yes Bleeding between periods: Yes Period symptoms: Acne, Breast tenderness, Cramps, Mood change , and Pelvic pain Sexually active: Yes Contraception: Condom Contraception frequency: Always HPV vaccine: Yes HPV:negative Pt reported neg [id number] Last pap smear: Pt reported [id number] History of abnormal pap: No Colposcopy: No. Leep: No. Cone biopsy: No. Bothersome pelvic pain: No Last mammogram: Pt reported Dx dense breast tissue unsure date. Sexually active: Yes OB History T0 L0 SAB0 IAB0 Ectopic0 Multiple0 Live Births0 Medical Accountant History LMP: 05/09/2024 (Exact Date), Having periods Age at Menarche: Age at First : Age at Menopause: Medical Accountant History Comments: Sexual Activity: Yes; Male, Female Contraception: Condom PAST MEDICAL HISTORY Diagnosis Date Irregular menstrual cycle 05/23/2009 Myopia, high Other acne PCOS (polycystic ovarian syndrome) PAST SURGICAL HISTORY Procedure Laterality Date PAST SURGICAL HISTORY OF 2006 all four wisdom teeth removed FAMILY HISTORY Problem Relation Age of Onset Thyroid Mother hypothyroid: questionable (no medication) Osteoporosis Mother Cancer Maternal Grandfather bladder Heart Paternal Grandmother heart attack Cataract Paternal Grandmother Cancer Paternal Grandfather throat Breast Cancer Other SOCIAL HISTORY Social History Tobacco Use Smoking status: Never Smokeless tobacco: Never Vaping Use Vaping status: Never Used Substance Use Topics Alcohol use: Yes Alcohol/week: 3.0 standard drinks of alcohol Types: 3 Cans of Beer (12oz) per week Comment: Occasionally Drug use: No REVIEW OF SYSTEMS Abdomen: No abdominal pain, nausea, vomiting, diarrhea, or constipation. No bloating, early satiety, indigestion, or increased flatulence. Bladder: No dysuria, gross hematuria, urinary frequency, urinary urgency, or incontinence. Breast: No breast lumps, nipple d/c, overlying skin changes, redness or skin retraction. Allergies and current medication updated:Yes SENSITIVE EXAM: The sensitive examination was discussed with the Patient or Patient's Authorized Customer Support Coordinator. As applicable, any other physician, advance practice provider, medical student, or other health professional student that will be observing or involved in the sensitive examination for educational or training purposes was discussed with the Patient or Authorized Customer Support Coordinator. The Patient or Authorized Customer Support Coordinator has agreed to proceed with the sensitive examination. (Sensitive examination includes inspection and/or palpation of the breasts, pelvis, prostate and anorectal regions). EXAM: BP 134/78 Ht 5' 8.346" (1.74m) Wt 204 lb 9.6 oz (92.8kg) LMP 05/09/2024 BMI 30.79 kg/(m2). GENERAL: pleasant, female in no apparent distress HEENT: Normocephalic, atraumatic, mucus membranes moist, and no lesions NECK: Supple, full range of motion, no adenopathy, and thyroid normal DERMATOLOGY: Normal, without lesions, non-icteric, and non-hirsute BREAST: soft, non-tender, symmetric, no dominant mass, normal nipple-areolar complex, no lymphadenopathy, and no nipple discharge CHEST: Normal inspiratory effort ABDOMEN: soft, non-tender, and no masses PELVIC: external genitalia normal, normal Bartholin's glands, urethra, [place]'s glands, no vulvar lesions, no cervical lesions, good vaginal support, physiologic discharge present, normal appearing perineal body and perianal region BIMANUAL: uterus normal size, shape and consistency, no adnexal masses, and non-tender RECTOVAGINAL: deferred. NEURO: alert and oriented x3,exam grossly non-focal EXTREMITIES: normal ASSESSMENT/PLAN: 1) Health maintenance: Pap/HPV up to date. Mammogram ordered. Nutrition, exercise and routine health maintenance exams reviewed. Calcium/Vitamin D supplementation information provided. Colon cancer screening: start at age 45 2) Contraception: condoms. Contraceptive options reviewed and information provided. 3) STD screening: Declined STD check. 4) Follow up one year or sooner as needed Suzette Stokes, EIGHT ARM OPERATOR.COUNTY TAX ASSESSOR Referrin (more content not included)... [facility] HIGH RISK HUMAN PAPILLOMA AVERY (HPV), PCR FOR DETECTION AND GENOTYPINGon 06-09-2024 HPV 16 Ag Ql (Unsp spec) Not detected Normal Not detected [facility] Comment on above: Order Comment: Speci men Type: FLUID SPECIMEN Ordering Facility: [facility] Address: [address] [place] [address] Performed By: #### H PVHRT #### [facility] CLIA [id number] [address] [place] [address] [place] [address] [place] HPV 18 Ag Ql (Unsp spec) Not detected Normal Not detected [facility] Comment on above: Order Comment: Speci men Type: FLUID SPECIMEN Ordering Facility: [facility] Address: [address] [place] [address] Performed By: #### H PVHRT #### [facility] CLIA [id number] [address] [place] [address] [place] HPV 31+33+35+39+45+51+52+5 6+58+59+66+68 DNA AMANDA+probe Ql (Cvx) Not detected Normal Not detected [facility] Comment on above: Order Comment: Speci men Type: FLUID SPECIMEN Ordering Facility: [facility] Address: [address] [place] [address] Result Comment: High Risk HPV Other Type includes HPV types 31, 33, 35, 39, 45, 51, 52, 56, 58, 59, 66 and 68. Performed By: #### H PVHRT #### [facility] CLIA [id number] [address] [place] [address] [place] PAP TESTon 06-09-2024 ADEQUACY [facility] Comment on above: Order Comment: Speci men Type: FLUID SPECIMEN Ordering Facility: [facility] Address: [address] [place] [address] Result Comment: Sati sfactory for interpretation. No endocervical component Performed By: #### L [id number] #### [facility] CLIA [id number] [address] [place] [address] [place] CASE REPORT [facility] Comment on above: Order Comment: Speci men Type: FLUID SPECIMEN Ordering Facility: [facility] Address: [address] [place] [address] Result Comment: Gyne cologic Cytology Report Case: [id number] Authorizing Provider: Suzette Stokes APRN.COUNTY TAX ASSESSOR Collected: 06/09/2024 03:04 PM Ordering Location: OB/Gynecology Received: 06/09/2024 04:46 PM First Screen: Marcelina, Araceli, CT, ASCP Pathologist: Ny Glover MD Specimen: Pap Test, ThinPrep, Cervix Performed By: #### L [id number] #### [facility] CLIA [id number] [address] [place] [address] [place] CLINICAL HISTORY, CYTOLOGY, SPORTS MEDIA Routine Exam [facility] Comment on above: Order Comment: Speci men Type: FLUID SPECIMEN Ordering Facility: [facility] Address: [address] [place] [address] Performed By: #### L [id number] #### [facility] CLIA [id number] [address] [place] [address] [place] FINAL PERFORMING LAB [facility] Comment on above: Order Comment: Speci men Type: FLUID SPECIMEN Ordering Facility: [facility] Address: [address] [place] [address] Result Comment: Tech nical component, acid filler screening performed at [facility], [address] [place], [place] [id number] CLIA# [id number] Diagnostic interpretation performed at [facility], [address] [place], [place] [address] CLIA# [id number] [employer]ery Worker: Donnie Whitmore M.D. Performed By: #### L [id number] #### [facility] CLIA [id number] [address] [place] [address] [place] INTERPRETATION, CYTOLOGY, SPORTS MEDIA Abnormal [facility] Comment on above: Order Comment: Speci men Type: FLUID SPECIMEN Ordering Facility: [facility] Address: [address] [place] [address] Result Comment: Atyp ical squamous cells of undetermined significance (ASC-US). Performed By: #### L [id number] #### [facility] CLIA [id number] [address] [place] [address] [place] LMP 05/09/2024 [facility] Comment on above: Order Comment: Speci men Type: FLUID SPECIMEN Ordering Facility: [facility] Address: [address] [place] [address] Performed By: #### L [id number] #### [facility] CLIA [id number] [address] [place] [address] [place] PAP DISCLAIMER COMMENT The Pap Smear is a screening test for cervical cancer. False negative results occur with all screening tests, emphasizing the need for rescreening at recommended intervals, and clinical correlation. [facility] Comment on above: Order Comment: Speci men Type: FLUID SPECIMEN Ordering Facility: [facility] Address: [address] [place] [address] Performed By: #### L [id number] #### [facility] CLIA [id number] [address] [place] [address] [place] PAP GENERAL CATEGORIZATION Epithelial Cell Abnormality [facility] Comment on above: Order Comment: Speci men Type: FLUID SPECIMEN Ordering Facility: [facility] Address: [address] [place] [address] Performed By: #### L [id number] #### [facility] CLIA [id number] [address] [place] [address] [place] PAP SCREW MACHINE HAND COMMENT This specimen has be en analyzed by the ThinPrep Imaging System, an automated imaging and review system, which assists the laboratory in evaluating cells on ThinPrep Pap tests. Following automated imaging, selected sampson from every slide are reviewed by a acid filler. [facility] Comment on above: Order Comment: Speci men Type: FLUID SPECIMEN Ordering Facility: [facility] Address: [address] [place] [address] Performed By: #### L [id number] #### [facility] CLIA [id number] [address] [place] [address] [place] CNOVon 02-19-2024 CNOV Office Visit (UCWSTR ) CRISTIMAEGAN ([id number]) 1990 F [facility] Date Time Provider Department 02/19/24 2:30 PM [facility] During your visit today, we recorded the following information about you: Blood pressure Weight Height 108/68 91.7 kg 1.753 m Delmer Barrera MA 02/19/2024 2:31 PM Signed Patient presents for EHP check. Blood Pressure: 108/68 Height: 5'9" Weight: 91.7 kg Delmer Barrera MA Allergies As of Date: 02/19/2024 Noted Allergy Reaction AMOXICILLIN 08/11/2005 2 - Rash PENICILLIN 11/11/2016 4 - Hives Date Reviewed: 08/10/2023 Reviewed by: Geraldine Dickinson, - Fully Assessed Reason for Visit: EHP Weight/BP/Height check [Other] Primary Visit Diagnosis:Encounter for dietary counseling and surveillance [Z71.3] Prescriptions as of 02/19/2024 - medroxyPROGESTERone (PROVERA) 10 mg tablet Take 1 tablet by mouth once daily. Problem List As Of Date 02/19/2024 Noted Resolved ACNE NEC [L70.8] 12/14/2008 NEVOCELLULAR NEVI MOLES///BENIGN CODIE SKIN TRUNK*12/14/2008 09/04/2014 NEVOCELLULAR NEVI MOLES///BENIGN CODIE SKIN ARM [*12/14/2008 09/04/2014 NEVOCELLULAR NEVI MOLES//BENIGN CODIE SKIN LEG [D*12/14/2008 09/04/2014 SOLAR LENTIGENES//DYSCHROMIA OTHER [L81.9] 12/14/2008 09/04/2014 ACTINIC DAMAGE///CHR SOLAR SKIN DAMAGE NOS [L57*12/14/2008 09/04/2014 Irregular Menstrual Cycle [N92.6] 05/23/2009 01/24/2010 PCOS (Polycystic Ovarian Syndrome) [E28.2] 01/24/2010 Oligomenorrhea [N91.5] 01/24/2010 Visit Notes: >> Delmer Barrera MA Fri Feb 19, 2024 2:30 PM Status: Signed Patient presents for EHP check. Blood Pressure: 108/68 Height: 5'9" Weight: 91.7 kg Delmer Barrera MA Encounter Status:Closed by DELMER BARRERA on 02/19/24 [facility] HEPATITIS C ANTIBODY IA WITH CONFIRMATIONon 08-12-2023 HCV Ab Ql (S) Negative Negative [facility] Basic metabolic 1999 panelon 08-11-2023 Anion gap [Moles/Vol] 12 mmol/L 9 - 18 mmol/L [facility] Calcium [Mass/Vol] 9.3 mg/dL 8.5 - 10. 2 mg/dL [facility] Chloride [Moles/Vol] 103 mmol/L 97 - 10 5 mmol/L [facility] CO2 [Moles/Vol] 27 mmol/L 22 - 30 mmol/L [facility] Creatinine [Mass/Vol] 0.96 mg/dL 0.58 - 0.96 mg/dL [facility] Estimated Glomerular Filtration Rate 80 mL/min/1.73m >=60 mL/min/1.73m [facility] Glucose [Mass/Vol] 92 mg/dL 74 - 99 mg/dL [facility] Potassium [Moles/Vol] 4.3 mmol/L 3.7 - 5.1 mmol/L [facility] Sodium [Moles/Vol] 142 mmol/L 136 - 144 mmol/L [facility] Urea nitrogen [Mass/Vol] 16 mg/dL 7 - 21 mg/dL [facility] Lipid 1995 panelon Cholesterol [Mass/Vol] 177 mg/dL <200 mg/dL [facility] Cholesterol in HDL [Mass/Vol] 59 mg/dL >39 mg/dL [facility] Cholesterol in LDL [Mass/Vol] 99 mg/dL <100 mg/dL [facility] Cholesterol in LDL/Cholesterol in HDL [Mass ratio] 1.68 {ratio} <2.54 [facility] Cholesterol in VLDL [Mass/Vol] 19 mg/dL <30 mg/dL [facility] Cholesterol non HDL [Mass/Vol] 118 mg/dL <130 mg/dL [facility] Cholesterol.total/Chol esterol in HDL [Mass ratio] 3.00 {ratio} <5.10 [facility] Fasting Time 11 hrs [facility] Triglyceride [Mass/Vol] 93 mg/dL <150 mg/dL [facility] Basophil percentageOrdered B y: Dr. Elizabeth on 10-06-2022 Cholesterol [Mass/Vol] 181 mg/dL <200 [facility] Comment on above: <200 mg/dL Desirable 200-240 mg/dL Borderline >240 mg/dL High Risk Glucose [Mass/Vol] 99 mg/dL 74-106 [facility] Triglyceride [Mass/Vol] 62 mg/dL <199 [facility] Comment on above: The drugs N-Acetylcy steine and Metamizole may falsely depress this assay.Serum Triglycerides Reference Interval Normal <150 mg/dL Borderline high 150 - 199 mg/dL High 200 - 499 mg/dL Very High > or = 500 mg/dL No Panel InformationOrdered By: Dr. Elizabeth on 10-06-2022 Thyroid Stimulating Hormone (TSH) 1.88 uIU/mL 0.358-3.74 [facility] Serum or plasma cholesterol in HDL measurement (mass/volume)Ordered By: Dr. Elizabeth on 10-06-2022 Cholesterol in HDL [Mass/Vol] 68 mg/dL >40 [facility] Comment on above: The drugs N-Acetylcy steine and Metamizole may falsely depress this assay. Reference Range HDL <40 mg/dL Low HDL Cholesterol HDL >or= 60 mg/dL High HDL Cholesterol Serum or plasma cholesterol in VLDL measurement (mass/volume)Ordered By: Dr. Elizabeth on 10-06-2022 Cholesterol in VLDL [Mass/Vol] 12 mg/dL 5-40 [facility] Serum or plasma low density lipoprotein (LDL) cholesterol measurement (mass/volume)Ordered By: Dr. Elizabeth on 10-06-2022 Cholesterol in LDL [Mass/Vol] 101 mg/dL 0-130 [facility] Serum or plasma prolactin me asurement (mass/volume)Ordered By: Dr. Elizabeth on 10-06-2022 Prolactin [Mass/Vol] 12.0 ng/mL [facility] Comment on above: NORMAL REFERENCE RAN GES FEMALE NON- 2.2 - 30.3 ng/mL 8.1 - 347.6 ng/mL POST-MENOPAUSAL 0.7 - 31.5 ng/mL MALE 2.5 - 17.4 ng/mL Basophil percentageon 2021 Cholesterol [Mass/Vol] 187 mg/dL <200 [facility] Work Phone: Comment on above: <200 mg/dL Desirable 200-240 mg/dL Borderline >240 mg/dL High Risk Glucose [Mass/Vol] 108 mg/dL 74-106 [facility] Work Phone: Comment on above: Fasting Glucose resu lt from 100 to 125 mg/dL suggests IMPAIRED HOMEOSTASIS per A.D.A. criteria. Triglyceride [Mass/Vol] 72 mg/dL <199 [facility] Work Phone: Comment on above: The drugs N-Acetylcy steine and Metamizole may falsely depress this assay.Serum Triglycerides Reference Interval Normal <150 mg/dL Borderline high 150 - 199 mg/dL High 200 - 499 mg/dL Very High > or = 500 mg/dL No Panel Informationon 04-22 Thyroid Stimulating Hormone (TSH) 1.46 uIU/mL 0.358-3.74 [facility] Work Phone: Vitamin D 25-Hydroxy 31.9 ng/mL [facility] Work Phone: Comment on above: Vitamin D 25(OH) Sta tus Range Deficiency <20 ng/mL (50nmol/L) Insufficiency 20 - 30 ng/mL (50 - 75 nmol/L) Sufficiency 30 - 100 ng/mL (75 - 250 nmol/L) Toxicity >100 ng/mL (>250 nmol/L) Serum or plasma cholesterol in HDL measurement (mass/volume)on 04-22-2022 Cholesterol in HDL [Mass/Vol] 70 mg/dL >40 [facility] Work Phone: Comment on above: The drugs N-Acetylcy steine and Metamizole may falsely depress this assay. Reference Range HDL <40 mg/dL Low HDL Cholesterol HDL >or= 60 mg/dL High HDL Cholesterol Serum or plasma cholesterol in VLDL measurement (mass/volume)on 04-22-2022 Cholesterol in VLDL [Mass/Vol] 14 mg/dL 5-40 [facility] Work Phone: Serum or plasma low density lipoprotein (LDL) cholesterol measurement (mass/volume)on 04-22-2022 Cholesterol in LDL [Mass/Vol] 103 mg/dL 0-130 [facility] Work Phone: LDHon 09-29-2019 LDH 114 U/L Normal 100 - 190 [facility] Comment on above: Performed By: #### 2 [id number] #### [facility],[address] [place] [address] LIPID PROFILEon 09-29-2019 Cholesterol [Mass/Vol] 165 mg/dL Normal 0 - 200 [facility] Comment on above: Performed By: #### 2 [id number] #### [facility],[address] [place] [address] Cholesterol in HDL [Mass/Vol] 61 mg/dL High 40 - 60 [facility] Comment on above: Performed By: #### 2 [id number] #### [facility],[address] [place] [address]687 Cholesterol in LDL [Mass/Vol] 90 mg/dL Normal 0 - 129 [facility] Comment on above: Performed By: #### 2 [id number] #### [facility],[address] [place] [address]69 Cholesterol.total/Chol esterol in HDL [Mass ratio] 2.7 {ratio} Normal 0.0 - 5.0 [facility] Comment on above: Performed By: #### 2 [id number] #### [facility],[address] [place] [address] 12904 Lipid 1996 panel Normal [facility] Comment on above: Result Comment: LIPI D PROFILE Performed By: #### 2 [id number] #### [facility],[address] [place] [address]134 Triglyceride [Mass/Vol] 68 mg/dL Normal 0 - 150 [facility] Comment on above: Performed By: #### 2 [id number] #### [facility],[address] [place] [address]180 CHEST 1 VIEWon 09-28-2019 CHEST [address] [address] Patient: MAEGAN COLIN Phone#: : 1990 Age: 29 Gender: F Pt. Type: Out Account: [id number] Location: 062 Ordering: YOSEPH CRISTI Exam Date: 09/28/2019/8:44 Family Phys: Charge Code: [id number] Physician: Bradford Order #: [id number] DLP Dose#: PROCEDURE: X-RAY CHEST 1 VIEW COMPARISON: None. INDICATIONS: Pre-employment evaluation. FINDINGS: LUNGS: Normal. No significant pulmonary parenchymal abnormalities. VASCULATURE: Normal. Unremarkable pulmonary vasculature. CARDIAC: Normal. No cardiac silhouette abnormality or cardiomegaly. MEDIASTINUM: Normal. No visible mass or adenopathy. PLEURA: Normal. No effusion or pleural thickening. BONES: Normal. No fracture or visible bony lesion. OTHER: Negative. CONCLUSION: No acute disease. Dictated by: Shakir Avila MD on 09/28/2019 at 9:01 Approved by: Shakir Avila MD on 09/28/2019 at 9:01 Normal [facility] STRESS TEST (DGEST) NO IMAGI NGon 09-28-2019 STRESS TEST (DGEST) NO IMAGING [address] [address] Patient: MAEGAN COLIN Phone#: : 1990 Age: 29 Gender: F Pt. Type: Out Account: [id number] Location: 062 Ordering: YOSEPH CRISTI Exam Date: 09/28/2019/7:15 Family Phys: NO DOCTOR Charge Code: [id number] Physician: Bradford Order #: [id number] DLP Dose#: PROCEDURE: DGEST HISTORY: Pre-employment INDICATIONS: Pre-employment physical TECHNIQUE: Electrocardiogram stress test was performed using the protocol listed below. STRESS RESULTS: Protocol: [place] Duration: 10:01minutes Reason for termination: leg fatigue Resting Heart Rate: 71 bpm. Resting Blood Pressure: 118/59 mmHg Peak Heart Rate: 184 which is 96% of maximum predicted heart rate Peak Blood Pressure: 166/69 occurred 8:59 into recovery Workload: 11.70 METs. Symptoms with stress: Patient did not complain of any chest pain with stress. Stress test was ended due to leg fatigue. EKG Data EKG at Baseline: EKG at baseline showed sinus rhythm at 66 BPM. EKG is normal EKG with Stress: EKG with stress showed sinus tachycardia at 184 BPM. There are no ST or T- wave changes to suggest inducible ischemia. CONCLUSION: 1. Patient was able to achieve good workload capacity 2. Patient did not complain of any chest pain with stress. Stress test was ended due to leg fatigue. Patient had appropriate blood pressure and heart rate response with stress. Continued Report - Page 2 of 2 Patient: MAEGAN COLIN Phone#: : 1990 Age: 29 Gender: F Pt. Type: Out Account: [id number] Location: [facility] Ordering: YOSEPHLoraine COLIN Exam Date: 09/28/2019/7:15 Family Phys: NO DOCTOR Charge Code: [id number] Physician: Bradford Order #: [id number] DLP Dose#: 3. Stress EKG is negative for inducible ischemia Approved by: AILEEN IVORY MD on 09/28/2019 at 10:46 Normal [facility] Vital Signs Date Time Vital Sign Value Performing Clinician Maurice roberts 03-03-2025 11:37-0400 Body height 175.[address] Irlanda Doran MD Work Phone: [facility] 03-03-2025 11:25-0400 Body mass index (BMI) [Ratio] 28.2 kg/m2 Dr. Irlanda Doran MD Work Phone: [facility] 03-03-2025 11:25-0400 Body weight 86.[address] Irlanda Doran MD Work Phone: [facility] 03-03-2025 11:25-0400 Diastolic blood pressure 80 mm[Hg] Dr. Irlanda Doran MD Work Phone: [facility] 03-03-2025 11:25-0400 Systolic blood pressure 124 mm[Hg] Dr. Irlanda Doran MD Work Phone: [facility] 06-09-2024 14:15-0500 Body height 173.6 cm Suzette [place] EIGHT ARM OPERATOR.COUNTY TAX ASSESSOR Work Phone: [facility] 06-09-2024 14:15-0500 Body mass index (BMI) [Ratio] 30.8 kg/m2 Suzette Divya EIGHT ARM OPERATOR.COUNTY TAX ASSESSOR Work Phone: [facility] 06-09-2024 14:15-0500 Body weight 92.81 kg Suzette Divya EIGHT ARM OPERATOR.COUNTY TAX ASSESSOR Work Phone: [facility] 06-09-2024 14:15-0500 Diastolic blood pressure 78 mm[Hg] Suzette [place] EIGHT ARM OPERATOR.COUNTY TAX ASSESSOR Work Phone: [facility] 06-09-2024 14:15-0500 Systolic blood pressure 134 mm[Hg] Suzette Divya EIGHT ARM OPERATOR.COUNTY TAX ASSESSOR Work Phone: [facility] 02-19-2024 14:27-0400 Body height 175.3 cm Nurse Wstr Work Phone: [facility] 02-19-2024 14:27-0400 Body mass index (BMI) [Ratio] 29.85 kg/m2 Nurse Wstr Work Phone: [facility] 02-19-2024 14:27-0400 Body weight 91.7 kg Nurse Wstr Work Phone: [facility] 02-19-2024 14:27-0400 Diastolic blood pressure 68 mm[Hg] Nurse Wstr Work Phone: [facility] 02-19-2024 14:27-0400 Systolic blood pressure 108 mm[Hg] Nurse Wstr Work Phone: [facility] 08-10-2023 08:30-0400 Body height 175.3 cm Geraldine Dickinson DO Work Phone: [facility] 08-10-2023 08:30-0400 Body weight 2.27 kg Geraldinekannan Dickinson DO Work Phone: [facility] 10-01-2022 10:09-0400 Body height 175.[address] Irlanda Doran Work Phone: [facility] 10-01-2022 10:08-0400 Body mass index (BMI) [Ratio] 30 kg/m2 Dr. Irlanda Doran Work Phone: [facility] 10-01-2022 10:08-0400 Body weight 92.[address] Irlanda Doran Work Phone: [facility] 10-01-2022 10:08-0400 Diastolic blood pressure 72 mm[Hg] Dr. Irladna Doran Work Phone: [facility] 10-01-2022 10:08-0400 Systolic blood pressure 114 mm[Hg] Dr. Irlanda Doran Work Phone: [facility] 03-31-2022 14:25-0400 Body temperature 97.9 [degF] Joan Bogner PA-C Work Phone: [facility] 03-31-2022 14:25-0400 Body weight 92.72 kg Joan Bogner PA-C Work Phone: [facility] 03-31-2022 14:25-0400 Diastolic blood pressure 64 mm[Hg] Joan Bogner PA-C Work Phone: [facility] 03-31-2022 14:25-0400 Heart rate 82 /min Joan Bogner PA-C Work Phone: [facility] 03-31-2022 14:25-0400 Respiratory rate 21 /min Joan Bogner PA-C Work Phone: [facility] 03-31-2022 14:25-0400 SaO2% (BldA) [Mass fraction] 97 % Joan FOOTEC Work Phone: [facility] 03-31-2022 14:25-0400 Systolic blood pressure 102 mm[Hg] Joan Patel PA-C Work Phone: [facility] 02-20-2022 08:54-0400 Body height 175.[address] Irlanda Doran Work Phone: [facility] Work Phone: 02-20-2022 08:53-0400 Body mass index (BMI) [Ratio] 30 kg/m2 Dr. Irlanda Doran Work Phone: [facility] Work Phone: 02-20-2022 08:53-0400 Body weight 92.[address] Irlanda Doran Work Phone: [facility] Work Phone: 02-20-2022 08:53-0400 Diastolic blood pressure 69 mm[Hg] Dr. Irlanda Doran Work Phone: [facility] Work Phone: 02-20-2022 08:53-0400 Systolic blood pressure 108 mm[Hg] Dr. Irlanda Doran Work Phone: [facility] Work Phone: Encounters Encounter Date Encounter Type Care Provider Facility Start: 04-03-2025 End: 04-03-2025 ambulatory Araceli Curran [facility] Facility:[facility] Start: 03-03-2025 End: 03-03-[address] Irlanda Doran MD Work Phone: -Laboratory Start: 03-03-2025 End: 03-03-[address] Barbara Carson Work Phone: Start: 03-03-2025 End: 03-03-[address] [facility] Work Phone: Start: 03-03-2025 End: 03-03-[address] Barbara Prince DO [facility] Start: 03-03-2025 End: 03-03-[address] Irlanda Doran MD Work Phone: [facility] Start: 03-03-2025 End: 03-03-2025 ambulatory Araceli Curran [facility] Facility:[facility] Start: 09-21-2024 End: 11-21-2024 Follow-up encounter Jessica New MD Work Phone: OB/Gynecology Start: 09-19-2024 ambulatory [facility] Facility: [facility] Start: 09-19-2024 End: 09-19-2024 Subsequent hospital visit by physician Screen Mammo [facility] W[facility] Mammogram Comment on above: Encounter for screen ing mammogram for malignant neoplasm of breast [Z12.31] Start: 06-14-2024 End: 06-14-2024 ambulatory [facility] Comment on above: ECOACHING WEIGHT MAN AGEMENT Start: 06-09-2024 End: 06-09-2024 ambulatory [facility] Facility:[facility] Start: 06-09-2024 End: 06-09-2024 Patient encounter procedure Suzette Stokes EIGHT ARM OPERATOR.COUNTY TAX ASSESSOR Work Phone: OB/Gynecology Comment on above: Encounter for gyneco logical examination (general) (routine) without abnormal findings (Primary Dx); Encounter to establish care; Screening for cervical cancer; Encounter for screening for human papillomavirus (HPV); Encounter for screening mammogram for malignant neoplasm of breast; Family hx-breast malignancy Start: 06-09-2024 End: 06-09-2024 Patient encounter status Suzette Stokes APRN.COUNTY TAX ASSESSOR Work Phone: [facility] Start: 04-18-2024 End: 04-19-2024 ambulatory Geraldine Dickinson DO Work Phone: [facility] Comment on above: Scheduling core analyst appt Start: 03-31-2024 End: 03-31-2024 ambulatory Lilliam Carrera MA P Coordinated Care Comment on above: WEIGHT PROBLEM Start: 02-19-2024 End: 02-19-2024 ambulatory IRLANDA DORAN Facility:[facility] Start: 02-19-2024 End: 02-19-2024 Patient encounter procedure Nurse Exp Care [facility] Work Phone: [facility] Comment on above: Encounter for dietar y counseling and surveillance (Primary Dx) Start: 02-09-2024 End: 02-18-2024 ambulatory Geraldine Dickinson DO Work Phone: [facility] Comment on above: Employee Health Plan status Start: 08-10-2023 End: 08-10-2023 ambulatory Geraldine Dickinson DO Work Phone: [facility] Comment on above: Preventative health care (Primary Dx); Special screening examination for viral disease; Allergy to penicillin Start: 08-10-2023 End: 08-10-2023 Patient encounter status Geraldine Dickinson DO Work Phone: [facility] Work Phone: Start: 08-10-2023 End: 08-10-2023 Telemedicine consultation with patient Geraldine Dickinson DO Work Phone: [facility] Start: 10-06-2022 End: 10-06-[address] Irlanda Doran Work Phone: [facility] Work Phone: Start: 10-06-2022 End: 10-06-[address] Irlanda Doran Work Phone: [facility]-Laboratory, [facility] Start: 10-01-2022 End: 10-01-[address] Irlanda Doran Work Phone: [facility] Start: 04-22-2022 End: 04-22-2022 ambulatory No Primary Care Physician [facility] Work Phone: Start: 04-22-2022 End: 04-22-2022 Patient encounter procedure No Primary Care Physician [facility] Start: 03-31-2022 End: 03-31-2022 Office outpatient new 20 minutes Joan Patel PA-C Work Phone: [facility] Comment on above: Need for influenza v accination (Primary Dx) Start: 03-04-2022 End: 03-04-[address] Irlanda Doran Work Phone: [facility] Work Phone: Start: 03-04-2022 End: 03-04-[address] Irlanda Doran Work Phone: [facility]-Outpatient Breast Imaging Start: 02-20-2022 End: 02-20-[address] Irlanda Doran Work Phone: [facility] Start: 11-28-2021 Non-patient / Non-visit Dr. Al Doran Work Phone: [facility] Internal Medicine Start: 07-26-[address] Althea Doran Work Phone: [facility] Work Phone: Start: 09-29-2019 End: 09-29-2019 Patient encounter procedure YOSEPH COLIN [facility] Procedures Date Procedure Procedure Detail Performing Clinician Start: 03-03-2025 Liquid based cervica l cytology screening Dr. Irlanda Doran MD Work Phone: Comment on above: NEGATIVE FOR INTRAEP ITHELIAL LESION OR MALIGNANCY. This liquid based Th inPrep(R) pap test was interpretedusing the M2G(R) Genius(TM) Cervical Algorithm wholeslide imaging system. Start: 03-03-2025 Dehydroepiandrostero ne sulfate level Dr. Irlanda Doran MD Work Phone: Comment on above: Performed at: [address] [place], [place] [id number] Director: Jose Alejandro Meza PhD, Phone: [phone] Start: 03-03-2025 Vitamin D, 25-hydrox y measurement Dr. Irlanda Doran MD Work Phone: Comment on above: Vitamin D StatusDefi ciency: <20 ng/mL (50nmol/L)Insufficiency: 20-30 ng/mL (50-75 nmol/L)Sufficiency: 30-100 ng/mL (75-250 nmol/L)Toxicity: >100 ng/mL (>250 nmol/L) Start: 09-19-2024 Screening digital br east tomosynthesis ariana Stokes EIGHT ARM OPERATOR.COUNTY TAX ASSESSOR Work Phone: Start: 03-31-2022 INFLUENZA VACCINE QU ADRIVALENT 6 MO - 64 YRS JOHN Patel PA-C Work Phone: Start: 03-04-2022 Screening mammography Carie Doran Work Phone: Plan of Treatment Date Care Activity Detail Author Start: 05-20-2026 Urine microalbumin profile [facility] Start: 06-09-2025 End: 06-09-2025 Patient encounter procedure 06/09/2025 3:30 PM EST Office Visit OB/Gynecology [address] [place] [address] Suzette Stokes APRN.COUNTY TAX ASSESSOR [address] [place] [address] Annual OB/Gynecology Comment on above: Annual Start: 06-09-2025 Screening for malignant neoplasm of cervix Cervical Cancer Screening [facility] Start: 03-03-2025 Thy[address] stimulating hormone measurement [facility] Start: 03-03-2025 Vitamin D, 25-hydroxy measurement [facility] Start: 09-19-2024 End: 09-19-2024 Patient encounter procedure 09/19/2024 9:30 AM EDT Appointment Mammogram [address] [place] [address] Encounter for screening mammogram for malignant neoplasm of breast [Z12.31]; Family hx-breast malignancy [Z80.3] Mammogram Comment on above: Encounter for screening mammogram for ma lignant neoplasm of breast [Z12.31]; Family hx-breast malignancy [Z80.3] Start: 06-09-2024 End: 06-09-2024 Patient encounter procedure 06/09/2024 2:00 PM EST Office Visit OB/Gynecology [address] [place] [address] Suzette Stokes APRN.COUNTY TAX ASSESSOR [address] [place] [address] annual OB/Gynecology Comment on above: annual Start: 04-22-2024 End: 04-22-2024 Patient encounter procedure 04/22/2024 7:40 AM EST [facility] [address] [place] [id number] Destini Stack MD [address] [facility] [place] [address] ?NONE Penicillin allergy consult Allergy Comment on above: ?NONE Penicillin allergy consult Start: 01-31-2024 Covid-19 Vaccine ( season) Covid-19 Vaccine () [facility] Start: 01-31-2024 Covid-19 Vaccine ( season) Covid-19 Vaccine () [facility] Start: 01-31-2024 Influenza vaccination Influenza Vaccine (#1) [facility] Start: 01-30-2023 Covid-19 Vaccine ( season) Covid-19 Vaccine () [facility] Start: 10-06-2022 17-Hydroxyprogesterone [Mass/volume] in Serum or Plasma [facility] Start: 10-06-2022 Dehydroepiandrosterone sulfate (DHEA-S) [Mass/volume] in Serum or Plasma [facility] Start: 10-06-2022 Testosterone measurement [facility] Start: 07-18-2021 COVID-19 VACCINE (4 - Booster for Moderna series) COVID-19 VACCINE (4 - Booster for Moderna series) [facility] Start: 06-01-2021 DEPRESSION ASSESSMENT DEPRESSION ASSESSMENT [facility] Start: 09-16-2020 PAP TESTING PAP TESTING [facility] Start: 09-16-2020 Screening for malignant neoplasm of cervix Pap Testing [facility] Start: 09-18-2019 HPV TESTING HPV TESTING [facility] Start: 09-18-2019 Screening for malignant neoplasm of cervix HPV Testing [facility] Start: 09-16-2018 Screening for malignant neoplasm of cervix Cervical Cancer Screening [facility] Start: 09-18-2007 Anxiety Screening Anxiety Screening [facility] Start: 09-18-2007 Depression Screening Depression Screening [facility] Start: 09-18-2007 HEPATITIS C SCREENING HEPATITIS C SCREENING [facility] Start: 09-18-2007 HIV SCREENING HIV SCREENING [facility] Start: 09-18-2007 HIV screening HIV Screening [facility] End: 07-09-2025 DBT Breast - bilateral screening MIRANDA SCREENING W [facility] Radiology Routine Encounter for screening mammogram for malignant neoplasm of breast Family hx-breast malignancy 1 Occurrences starting 06/09/2024 until 07/09/2025 [facility] Work Phone: Comment on above: 1 Occurrences starting 06/09/2024 until 07/09/2025 Dehydroepiandrostero ne sulfate (DHEA-S) [Mass/volume] in Serum or Plasma [facility] Glucose [Mass/volume ] in Serum or Plasma [facility] Work Phone: Glucose [Mass/volume ] in Serum or Plasma [facility] Lipid 1996 panel - S dee or Plasma [facility] Work Phone: Lipid 1996 panel - S dee or Plasma [facility] MG Breast - bilatera l Screening [facility] PAP TEST PAP TEST Lab Rou sridevi Encounter to establish care Encounter for gynecological examination (general) (routine) without abnormal findings Screening for cervical cancer Encounter for screening for human papillomavirus (HPV) 06/09/2024 3:04 PM EST [facility] Testosterone Free [Mass/volume] in Serum or Plasma [facility] Thyroid stimulating hormone measurement [facility] Work Phone: Vitamin D, 25-hydrox y measurement [facility] Work Phone: [facility] Immunizations Immunization Date Immunization Notes Care Provider Mehrdad martinez 03-17-2024 influenza, injectabl e, madin prerna canine kidney, preservative free Suzette Divya EIGHT ARM OPERATOR.COUNTY TAX ASSESSOR Work Phone: [facility] 03-30-2023 influenza, injectabl e, quadrivalent, contains preservative Geraldine Alejandro DO Work Phone: [facility] 03-30-2023 influenza virus vacc ine, unspecified formulation Geraldine Alejandro DO Work Phone: [facility] 03-31-2022 influenza, injectabl e, quadrivalent, contains preservative Joan Bogner PA-C Work Phone: [facility] 07-20-2020 influenza, injectabl e, quadrivalent, contains preservative Joan Bogner PA-C Work Phone: [facility] 02-23-2018 influenza, injectabl e, quadrivalent, preservative free Joan Bogner PA-C Work Phone: [facility] 01-11-2018 tuberculin skin test ; purified protein derivative solution, intradermal Geraldine Alejandro DO Work Phone: [facility] 05-20-2016 tetanus toxoid, redu jennifer diphtheria toxoid, and acellular pertussis vaccine, adsorbed Joan Bogner PA-C Work Phone: [facility] 04-02-2016 influenza, seasonal, injectable Joan Bogner PA-C Work Phone: [facility] 03-12-2016 influenza, injectabl e, quadrivalent, preservative free Joan Bogner PA-C Work Phone: [facility] 06-29-2015 influenza, injectabl e, quadrivalent, preservative free Joan Bogner PA-C Work Phone: [facility] Work Phone: 10-31-2008 meningococcal polysaccharide vaccine (MPSV4) Joan Bogner PA-C Work Phone: [facility] Work Phone: 09-28-2007 hepatitis B vaccine, pediatric or pediatric/adolescent dosage Joan Bogner PA-C Work Phone: [facility] Work Phone: 09-28-2007 human papilloma viru s vaccine, quadrivalent Joan Bogner PA-C Work Phone: [facility] Work Phone: 02-26-2007 hepatitis B vaccine, adult dosage Joan Bogner PA-C Work Phone: [facility] Work Phone: 02-26-2007 hepatitis B vaccine, pediatric or pediatric/adolescent dosage Joan Bogner PA-C Work Phone: [facility] 02-26-2007 human papilloma viru s vaccine, quadrivalent Joan Bogner PA-C Work Phone: [facility] Work Phone: 12-08-2006 hepatitis B vaccine, pediatric or pediatric/adolescent dosage Joan Bogner PA-C Work Phone: [facility] Work Phone: 12-08-2006 human papilloma viru s vaccine, quadrivalent Joan Bogner PA-C Work Phone: [facility] Work Phone: 12-08-2006 tetanus toxoid, redu jennifer diphtheria toxoid, and acellular pertussis vaccine, adsorbed Joan Bogner PA-C Work Phone: [facility] Work Phone: 11-16-2002 measles, mumps and rubella virus vaccine Joan Bogner PA-C Work Phone: [facility] 12-17-1994 diphtheria, tetanus toxoids and acellular pertussis vaccine Joan Bogner PA-C Work Phone: [facility] 12-17-1994 trivalent poliovirus vaccine, live, oral Joan Bogner PA-C Work Phone: [facility] 12-22-1990 diphtheria, tetanus toxoids and acellular pertussis vaccine Joan Bogner PA-C Work Phone: [facility] 12-22-1990 haemophilus influenz ae type b vaccine, HbOC conjugate Joan Bogner PA-C Work Phone: [facility] 12-22-1990 trivalent poliovirus vaccine, live, oral Joan Bogner PA-C Work Phone: [facility] 09-21-1990 haemophilus influenz ae type b vaccine, HbOC conjugate Joan Bogner PA-C Work Phone: [facility] 09-10-1990 measles, mumps and rubella virus vaccine Joan Bogner PA-C Work Phone: [facility] 07-16-1990 haemophilus influenz ae type b vaccine, HbOC conjugate Joan Bogner PA-C Work Phone: [facility] 07-16-1990 tuberculin skin test ; purified protein derivative solution, intradermal Geraldine Alejandro DO Work Phone: [facility] 03-26-1990 diphtheria, tetanus toxoids and acellular pertussis vaccine Joan Bogner PA-C Work Phone: [facility] 01-25-1990 diphtheria, tetanus toxoids and acellular pertussis vaccine Joan Bogner PA-C Work Phone: [facility] 01-25-1990 trivalent poliovirus vaccine, live, oral Joan Bogner PA-C Work Phone: [facility] 1989 diphtheria, tetanus toxoids and acellular pertussis vaccine Joan Bogner PA-C Work Phone: [facility] 1989 trivalent poliovirus vaccine, live, oral Joan Bogner PA-C Work Phone: [facility] Payers Date Payer Category Payer Unknown [id number] 2025 Self-pay [id number] 2023 Private Health Insurance [id number] 2023 Unknown [id number] 2019 Unknown [id number] Unknown [id number] Unknown [id number] Unknown [id number] Social History Date Type Detail Facility Start: 02-20-2022 End: 10-01-2022 Tobacco smoking status [facility] Unknown if ever smoked [facility] Start: 1990 Sex Assigned At Female [facility] Start: 05-29-2011 End: 10-01-2022 Tobacco smoking status [facility] Never smoked tobacco [facility] Start: 05-29-2011 Tobacco use and exposure Smokeless tobacco non-user [facility] Start: 03-31-2022 End: 06-09-2024 Alcohol intake Current drinker of alcohol (finding) [facility] Start: 03-31-2022 End: 08-10-2023 Alcohol intake [facility] Work Phone: Start: 06-05-2010 [facility] Start: 1990 Sex Assigned At Not on file [facility] Start: 03-21-2022 End: 03-31-2022 Exposure to SARS-CoV-2 (event) Not sure [facility] Work Phone: Start: 08-10-2023 End: 06-09-2024 Tobacco use panel [facility] Work Phone: Start: 11-18-2024 Adult Depression Screening Assessment 0 [facility] Work Phone: Start: 07-14-2023 Gender identity Identifies as female gender (finding) [facility] Functional Status Date Assessment Result Facility 09-04-2014 Are you deaf, or do you have serious difficulty hearing No 09/04/2014 8:42 AM EDT Chante Bustamante MA No [facility] 09-04-2014 Are you blind, or do you have serious difficulty seeing, even when wearing glasses No 09/04/2014 8:42 AM EDT Chante Bustamante MA No [facility] 09-04-2014 Do you have serious difficulty walking or climbing stairs No 09/04/2014 8:42 AM EDT Chante Bustamante MA No [facility] 09-04-2014 Do you have difficul ty dressing or bathing No 09/04/2014 8:42 AM EDT Chante Bustamante MA No [facility] 09-04-2014 Because of a physica l, mental, or emotional condition, do you have difficulty doing errands alone such as visiting a physician's office or shopping No 09/04/2014 8:42 AM EDT Chante Bustamante MA No [facility] Mental Status Date Assessment Result Facility 09-04-2014 Because of a physica l, mental, or emotional condition, do you have serious difficulty concentrating, remembering, or making decisions No 09/04/2014 8:42 AM EDT Chante Bustamante MA No [facility] Clinical Notes 05-23-2009 to 03-03-2025 Note Date & Type Note Facility 03-03-2025 Evaluation note Diagnosis Onset Date Resolution PCOS (polycystic ovarian syndrome) chronic March 03 11:10am Encounter for routine gynecological examination noneactive March 03 11:10am [facility] Work Phone: 1(906) 717-686304-21-2025 History of Present illness Narrative* Rema Pederson Mammo Tech - 09/19/2024 9:30 AM EDT Radiology Service Progress Note PATIENT NAME: Maegan Colin DATE OF SERVICE: September 19, 2024 TIME: 10:47 AM PATIENT IDENTITY VERIFICATION COMPLETED USING TWO (2) IDENTIFIERS: Name and Date of confirmedby patient verbally and Name and Date of confirmed by identification band. FALL SCREENING: Has the patient had 2 falls in the last year or 1 fall with injury or currently using an Ambulatory Assistive Device (Walker, Cane, Wheelchair, Crutches, etc.)? No PATIENT GENDER DATA: Assigned female at . status: : No status:NO. PATIENT RELEVANT IMPLANT DATA REVIEWED: Not Applicable PATIENT PRESENTS WITH AN IMPLANTABLE OR ATTACHED MAGISTRATE JUDGE: No RADIOLOGY DEPARTMENT: Mammography PERIPHERAL IV DATA: Not applicable SIGNED BY: Shi Scott September 19, 2024 10:47 AM documented in this encounterPromedica [facility]04-21-2025 NoteHNO ID: [id number] Author: REMA PEDERSON Mammo Tech Service: ? Author Type: Coding Compliance Specialist Type: Progress Notes Filed: 09/19/2024 10:48 Note Text: Radiology Service Progress Note PATIENT NAME: Maegan Colin DATE OF SERVICE: September 19, 2024 TIME: 10:47 AM PATIENT IDENTITY VERIFICATION COMPLETED USING TWO (2) IDENTIFIERS: Name and Date of confirmed by patient verbally and Name and Date of confirmed by identification band. FALL SCREENING: Has the patient had 2 falls in the last year or 1 fall with injury or currently using an Ambulatory Assistive Device (Walker, Cane, Wheelchair, Crutches, etc.)? No PATIENT GENDER DATA: Assigned female at . status: : No status: NO. PATIENT RELEVANT IMPLANT DATA REVIEWED: Not Applicable PATIENT PRESENTS WITH AN IMPLANTABLE OR ATTACHED MAGISTRATE JUDGE: No RADIOLOGY DEPARTMENT: Mammography PERIPHERAL IV DATA: Not applicable SIGNED BY: Shi Scott September 19, 2024 10:47 [facility]01-09-2025 NoteHNO ID: [id number] Author: SUZETTE STOKES APRN.COUNT[place] TAX ASSESSOR Service: ? 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 Transfer from [place] Nataly is a 33 year old who presents for an annual gynecologic exam without complaints. Getting in September, plans on trying for right away. Age at Menarche: 15 Still get period: Yes LMP: 05/09/2024 Menses: cycles every 32-35 days and 5 days of flow Menstrual flow: Moderate Bleeding amount bothersome: Yes Bleeding between periods: Yes Period symptoms: Acne, Breast tenderness, Cramps, Mood change , and Pelvic pain Sexually active: Yes Contraception: Condom Contraception frequency: Always HPV vaccine: Yes HPV:negative Pt reported neg [id number] Last pap smear: Pt reported [id number] History of abnormal pap: No Colposcopy: No. Leep: No. Cone biopsy: No. Bothersome pelvic pain: No Last mammogram: Pt reported Dx dense breast tissue unsure date. Sexually active: Yes OB History T0 L0 SAB0 IAB0 Ectopic0 Multiple0 Live Births0 Medical Accountant History LMP: 05/09/2024 (Exact Date), Having periods Age at Menarche: Age at First : Age at Menopause: Medical Accountant History Comments: Sexual Activity: Yes; Male, Female Contraception: Condom PAST MEDICAL HISTORY Diagnosis Date Irregular menstrual cycle 05/23/2009 Myopia, high Other acne PCOS (polycystic ovarian syndrome) PAST SURGICAL HISTORY Procedure Laterality Date PAST SURGICAL HISTORY OF 2006 all four wisdom teeth removed FAMILY HISTORY Problem Relation Age of Onset Thyroid Mother hypothyroid: questionable (no medication) Osteoporosis Mother Cancer Maternal Grandfather bladder Heart Paternal Grandmother heart attack Cataract Paternal Grandmother Cancer Paternal Grandfather throat Breast Cancer Other SOCIAL HISTORY Social History Tobacco Use Smoking status: Never Smokeless tobacco: Never Vaping Use Vaping status: Never Used Substance Use Topics Alcohol use: Yes Alcohol/week: 3.0 standard drinks of alcohol Types: 3 Cans of Beer (12oz) per week Comment: Occasionally Drug use: No REVIEW OF SYSTEMS Abdomen: No abdominal pain, nausea, vomiting, diarrhea, or constipation. No bloating, early satiety, indigestion, or increased flatulence. Bladder: No dysuria, gross hematuria, urinary frequency, urinary urgency, or incontinence. Breast: No breast lumps, nipple d/c, overlying skin changes, redness or skin retraction. Allergies and current medication updated:Yes SENSITIVE EXAM: The sensitive examination was discussed with the Patient or Patient's Authorized Customer Support Coordinator. As applicable, any other physician, advance practice provider, medical student, or other health professional student that will be observing or involved in the sensitive examination for educational or training purposes was discussed with the Patient or Authorized Customer Support Coordinator. The Patient or Authorized Customer Support Coordinator has agreed to proceed with the sensitive examination. (Sensitive examination includes inspection and/or palpation of the breasts, pelvis, prostate and anorectal regions). EXAM: BP 134/78 Ht 5' 8.346" (1.74m) Wt 204 lb 9.6 oz (92.8kg) LMP 05/09/2024 BMI 30.79 kg/(m2). GENERAL: pleasant, female in no apparent distress HEENT: Normocephalic, atraumatic, mucus membranes moist, and no lesions NECK: Supple, full range of motion, no adenopathy, and thyroid normal DERMATOLOGY: Normal, without lesions, non-icteric, and non-hirsute BREAST: soft, non-tender, symmetric, no dominant mass, normal nipple-areolar complex, no lymphadenopathy, and no nipple discharge CHEST: Normal inspiratory effort ABDOMEN: soft, non-tender, and no masses PELVIC: external genitalia normal, normal Bartholin's glands, urethra, [place]'s glands, no vulvar lesions, no cervical lesions, good vaginal support, physiologic discharge present, normal appearing perineal body and perianal region BIMANUAL: uterus normal size, shape and consistency, no adnexal masses, and non-tender RECTOVAGINAL: deferred. NEURO: alert and oriented x3,exam grossly non-focal EXTREMITIES: normal ASSESSMENT/PLAN: 1) Health maintenance: Pap/HPV up to date. Mammogram ordered. Nutrition, exercise and routine health maintenance exams reviewed. Calcium/Vitamin D supplementation information provided. Colon cancer screening: start at age 45 2) Contraception: condoms. Contraceptive options reviewed and information provided. 3) STD screening: Declined STD check. 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 Transfer from [place] is a 33 year old who presents for an annual gynecologic exam without complaints. Getting in September, plans on trying for right away. Age at Menarche: 15 Still get period: Yes LMP: 05/09/2024 Menses: cycles every 32-35 days and 5 days of flow Menstrual flow: Moderate Bleeding amount bothersome: Yes Bleeding between periods: Yes Period symptoms: Acne, Breast tenderness, Cramps, Mood change , and Pelvic pain Sexually active: Yes Contraception: Condom Contraception frequency: Always HPV vaccine: Yes HPV:negative Pt reported neg [id number] Last pap smear: Pt reported [id number] History of abnormal pap: No Colposcopy: No. Leep: No. Cone biopsy: No. Bothersome pelvic pain: No Last mammogram: Pt reported Dx dense breast tissue unsure date. Sexually active: Yes OB History T0 L0 SAB0 IAB0 Ectopic0 Multiple0 Live Births0 Medical Accountant History LMP: 05/09/2024 (Exact Date), Having periods Age at Menarche: Age at First : Age at Menopause: Medical Accountant History Comments: Sexual Activity: Yes; Male, Female Contraception: Condom PAST MEDICAL HISTORY Diagnosis Date Irregular menstrual cycle 05/23/2009 Myopia, high Other acne PCOS (polycystic ovarian syndrome) PAST SURGICAL HISTORY Procedure Laterality Date PAST SURGICAL HISTORY OF 2006 all four wisdom teeth removed FAMILY HISTORY Problem Relation Age of Onset Thyroid Mother hypothyroid: questionable (no medication) Osteoporosis Mother Cancer Maternal Grandfather bladder Heart Paternal Grandmother heart attack Cataract Paternal Grandmother Cancer Paternal Grandfather throat Breast Cancer Other SOCIAL HISTORY Social History Tobacco Use Smoking status: Never Smokeless tobacco: Never Vaping Use Vaping status: Never Used Substance Use Topics Alcohol use: Yes Alcohol/week: 3.0 standard drinks of alcohol Types: 3 Cans of Beer (12oz) per week Comment: Occasionally Drug use: No REVIEW OF SYSTEMS Abdomen: No abdominal pain, nausea, vomiting, diarrhea, or constipation. No bloating, early satiety, indigestion, or increased flatulence. Bladder: No dysuria, gross hematuria, urinary frequency, urinary urgency, or incontinence. Breast: No breast lumps, nipple d/c, overlying skin changes, redness or skin retraction. Allergies and current medication updated:Yes SENSITIVE EXAM: The sensitive examination was discussed with the Patient or Patient's Authorized Customer Support Coordinator. As applicable, any other physician, advance practice provider, medical student, or other health professional student that will be observing or involved in the sensitive examination for educational or training purposes was discussed with the Patient or Authorized Customer Support Coordinator. The Patient or Authorized Customer Support Coordinator has agreed to proceed with the sensitive examination. (Sensitive examination includes inspection and/or palpation of the breasts, pelvis, prostate and anorectal regions). EXAM: BP 134/78 Ht 5' 8.346" (1.74m) Wt 204 lb 9.6 oz (92.8kg) LMP 05/09/2024 BMI 30.79 kg/(m^2). GENERAL: pleasant, female in no apparent distress HEENT: Normocephalic, atraumatic, mucus membranes moist, and no lesions NECK: Supple, full range of motion, no adenopathy, and thyroid normal DERMATOLOGY: Normal, without lesions, non-icteric, and non-hirsute BREAST: soft, non-tender, symmetric, no dominant mass, normal nipple-areolar complex, no lymphadenopathy, and no nipple discharge CHEST: Normal inspiratory effort ABDOMEN: soft, non-tender, and no masses PELVIC: external genitalia normal, normal Bartholin's glands, urethra, [place]'s glands, no vulvar lesions, no cervical lesions, good vaginal support, physiologic discharge present, normal appearing perineal body and perianal region BIMANUAL: uterus normal size, shape and consistency, no adnexal masses, and non-tender RECTOVAGINAL: deferred. NEURO: alert and oriented x3,exam grossly non-focal EXTREMITIES: normal ASSESSMENT/PLAN: 1) Health maintenance: Pap/HPV up to date. Mammogram ordered. Nutrition, exercise and routine health maintenance exams reviewed. Calcium/Vitamin D supplementation information provided. Colon cancer screening: start at age 45 2) Contraception: condoms. Contraceptive options reviewed and information provided. 3) STD screening: Declined STD check. 4) Follow up one year or sooner as needed Suzette Stokes APRN.JAIDEN documented in this encounterProm[facility]11-[facility] Telephone encounter Note * Telephone Encounter - Mary Reyes - 04/19/2024 10:45 AM EST Left VM for pt to CB and schedule with [facility]. [facility]11-19-2024 Miscellaneous Notes* Telephone Encounter - Mary Reyes - 04/19/2024 10:45 AM EST Left VM for pt to CB and schedule with [facility]. documented in this encounterPromedica [facility]10-31-2024 Miscellaneous Notes* [facility] Outreach Note - Lilliam Morales RN - 03/31/2024 12:02 PM EDT Change from Enrolling to Open Enrolling in Weight Management Program for 2024 program year Earned No discount for 2024 Transfer to Yessi Diaz MA once enrollment complete Needs updated Blood Pressure reading for 2024 program year Needs 2024 weight loss goal set Needs 2024 Weight Welcome letter sent 2024 Weight goal Set 02/19/2024 91.7 kg (202 lb 2.6 oz) [facility] Height 5'9" 2024 Weight goal: BMI goal set based on weight documented on 02/19/2024 of 202 lbs. Weight goal to reach between 01/13/2025 - 02/28/2025 is pounds. MEDICATIONS PER RX DATABASE None Adherent with medication refills N/A Date Verified 03/31/2024 Is member submitting receipts for Reimbursement N/A Is member eligible for medication reimbursement No Is Employee Health Plan primary Yes Member resides in [facility] 2024 Wt goal lbs BMI Points Diagnosis of Coronary Artery Disease No Last 3 Encounter BP Readings: Date: BP: 02/19/2024 108/68 03/31/2022 102/64 01/11/2018 110/80 LDL Cholesterol (mg/dL) Date Value 08/11/2023 99 03/26/2015 75 No results found for: "LDLCHOLDIR" LDL:HDL RATIO Applies to members that are diet and Exercise controlled LDL:HDL RATIO does not apply to members on a statin LDL:HDL Ratio Date Value Ref Range Status 08/11/2023 1.68 <2.54 Final Comment: Reference: 1. National Cholesterol Education Program ATP III Guideline At-A-Glance Quick Desk Reference: National Heart, Lung, and Blood [place]. National Institutes of Health. 2001: NIH Publication No. 01-3305. 2. An International Atherosclerosis Society position paper: global recommendations for the management of dyslipidemia: executive summary, Atherosclerosis. 2014: 232(2):410-413. Diabetic Screening Hemoglobin A1C (%) Date Value 03/26/2015 5.4 documented in this encounterPromedica [facility]10-31-2024 Note* [facility] Outreach Note - Lilliam Morales RN - 03/31/2024 12:02 PM EDT Change from Enrolling to Open Enrolling in Weight Management Program for 2024 program year Earned No discount for 2024 Transfer to Ysesi Diaz MA once enrollment complete Needs updated Blood Pressure reading for 2024 program year Needs 2024 weight loss goal set Needs 2024 Weight Welcome letter sent 2024 Weight goal Set 02/19/2024 91.7 kg (202 lb 2.6 oz) [facility] Height 5'9" 2024 Weight goal: BMI goal set based on weight documented on 02/19/2024 of 202 lbs. Weight goal to reach between 01/13/2025 - 02/28/2025 is pounds. MEDICATIONS PER RX DATABASE None Adherent with medication refills N/A Date Verified 03/31/2024 Is member submitting receipts for Reimbursement N/A Is member eligible for medication reimbursement No Is Employee Health Plan primary Yes Member resides in [facility] 2024 Wt goal lbs BMI Points Diagnosis of Coronary Artery Disease No Last 3 Encounter BP Readings: Date: BP: 02/19/2024 108/68 03/31/2022 102/64 01/11/2018 110/80 LDL Cholesterol (mg/dL) Date Value 08/11/2023 99 03/26/2015 75 No results found for: "LDLCHOLDIR" LDL:HDL RATIO Applies to members that are diet and Exercise controlled LDL:HDL RATIO does not apply to members on a statin LDL:HDL Ratio Date Value Ref Range Status 08/11/2023 1.68 <2.54 Final Comment: Reference: 1. National Cholesterol Education Program ATP III Guideline At-A-Glance Quick Desk Reference: National Heart, Lung, and Blood [place]. National Institutes of Health. 2001: NIH Publication No. 01-3305. 2. An International Atherosclerosis Society position paper: global recommendations for the management of dyslipidemia: executive summary, Atherosclerosis. 2014: 232(2):410-413. Diabetic Screening Hemoglobin A1C (%) Date Value 03/26/2015 5.4 [facility]09-20-2024 Nurse Note* Delmer Barrera MA - 02/19/2024 2:30 PM EDT Patient presents for EHP check. Blood Pressure: 108/68 Height: 5'9" Weight: 91.7 kg Delmer Barrera MA [facility]09-20-2024 Nurse Note* Delmer Barrera MA - 02/19/2024 2:30 PM EDT Patient presents for EHP check. Blood Pressure: 108/68 Height: 5'9" Weight: 91.7 kg Delmer Barrera MA documented in this encounterPromed[facility]2024 Telephone encounter Note * Telephone Encounter - Ignacia Pena MA - 02/16/2024 4:37 PM EDT Items addressed in this encounter: Telephone Encounter Attempted to reach patient no answer LVM for patient to sign into [employer] and read the messages Ignacia Pena MA February 16, 2024 4:37 PM 4:37 PM [facility]2024 Miscellaneous Notes* Telephone Encounter - Ignacia Pena MA - 02/16/2024 4:37 PM EDT Items addressed in this encounter: Telephone Encounter Attempted to reach patient no answer LVM for patient to sign into [employer] and read the messages Ignacia Pena MA February 16, 2024 4:37 PM 4:37 PM * Telephone Encounter - Geraldine Dickinson DO - 02/16/2024 3:11 PM EDT Patient has not read [employer] messages. Can you please try to reach her and leave message * Telephone Encounter - Ignacia Pena MA - 02/09/2024 10:04 AM EDT Items addressed in this encounter: Telephone Encounter MyChart Encounter Attempt to reach patient no answer sent mychart message patient need express care visit to have weight height and BP documented for EHP form to be completed Ignacia Pena MA February 09, 2024 10:11 AM 10:11 AM documented in this encounterProm[facility] Tele[facility] encounter Note * Telephone Encounter - Geraldine Dickinson DO - 02/16/2024 3:11 PM EDT Patient has not read Heat[employer] messages. Can you please try to reach her and leave message [facility]09-10-[facility]24 Telephone encounter Note* Telephone Encounter - Ignacia Pena MA - 02/09/2024 10:04 AM EDT Items addressed in this encounter: Telephone Encounter MyChart Encounter Attempt to reach patient no answer sent mychart message patient need express care visit to have weight height and BP documented for EHP form to be completed Ignacia Pena MA February 09, 2024 10:11 AM 10:11 AM [facility]03-11-2024 Instructions* Patient Instructions* Geraldine Dickinson DO - 08/10/2023 10:00 AM EDT Employee Assistance Program Have A Problem? We're Available and Listening! No cost, short-term counseling for eligible caregivers & dependents: [phone] or [phone] The EAP provides confidential assessment, short-term counseling and referral services for issues that are important to you and your family. There is No Cost for counseling sessions and services offered by the program. All benefit eligible employees and their immediate family members residing in their household are eligible to use the program. Age restrictions exist for children/adolescents under 18, call for more details. Unexpected events such as grief, , risk to safety, and organizational transitions, occur in the workplace and can disrupt employees ability to perform their duties. In such times, the EAP is available to provide immediate and follow-up support to affected employees in a variety of ways. EAP clinicians are trained on Critical Incident Response (CIR) and can be on-site to support employees when requested. CIR services: Facilitation of workplace grief or trauma caused by grief, , or risk of safety, and emotional stress caused by reorganizations or other workplace transitions Crisis intervention for groups or individuals Stress management education to increase coping skills Support and guidance for managing crisis response with organization s policies with resiliency and compassion For consultation and support, please contact the EAP at [phone] or page [phone] documented in this encounterPromedica [facility]03-[facility]24 History of Present illness Narrative* Geraldine Dickinson DO - 08/10/2023 9:38 AM EDT Telemedicine Visit - Distance Health Virtual Visit Note Patient seen on [employer] Video Visit platform. Location of patient: [place] PCP: Irlanda Doran MD History of Present Illness Maegan Colin is a 32 year old female who presents for preventative care. - Looking to establish with a PCP EHP Form: - Needs EHP form filled out - Currently weighs about 190 lbs - Denies h/o HTN, h/o diabetes, h/o HLD, h/o asthma, h/o nicotine use PCOS: - Needs to establish with OBGYN - Take progesterone to induce her period, was told to wait 10 days after she is supposed to have her cycle to take the progesterone - Was initially on hormonal control in the past but did not like the way it made her feel PAST MEDICAL HISTORY Diagnosis Date Irregular menstrual cycle 05/23/2009 Myopia, high Other acne PCOS (polycystic ovarian syndrome) PAST SURGICAL HISTORY Procedure Laterality Date PAST SURGICAL HISTORY OF 2006 all four wisdom teeth removed FAMILY HISTORY Problem Relation Age of Onset Cancer Maternal Grandfather bladder Cancer Paternal Grandfather throat Heart Paternal Grandmother heart attack Cataract Paternal Grandmother Thyroid Mother hypothyroid: questionable (no medication) Osteoporosis Mother other (Other) Mother Breast Cancer Other Social History Tobacco Use Smoking status: Never Smokeless tobacco: Never Substance Use Topics Alcohol use: Yes Alcohol/week: 3.0 standard drinks of alcohol Types: 3 Cans of Beer (12oz) per week Comment: Occasionally Drug use: No - 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 (Patient not taking: Reported on 03/31/2022) No current facility-administered medications for this visit. ALLERGIES Allergen Reactions Amoxicillin Rash Penicillin Hives Video Exam (Examination performed via Video enabled technology) General appearance: Alert, oriented, pleasant, in NAD :Yes Ill appearing :No Lethargic appearing :No Respiratory distress :No PHQ-9 PHQ-9 Scores 05/20/2016 08/10/2023 Little interest or pleasure in doing things Not at all Not at all Feeling down, depressed, or hopeless Not at all Not at all Assessment/Plan: 1. Preventative health care - ICD9: V70.0, ICD10: Z00.00 (primary diagnosis) - CONSULT TO ASSEMBLER FINAL - LIPID PANEL BASIC - BASIC METABOLIC PNL - Pt needs EHP form completed. Will get biometrics done at [facility] and will send [employer] message when complete. 2. Special screening examination for viral disease - ICD9: V73.99, ICD10: Z11.59 - HEPATITIS C ANTIBODY IA WITH CONFIRMATION 3. Allergy to penicillin - ICD9: V14.0, ICD10: Z88.0 - CONSULT TO PENICILLIN ALLERGY - Red flags discussed for need for in person care - All questions answered I have communicated my name and active licensure. The patient's identity and physical location wereverified at the time of this visit. Either the patient or their legal security systems sales representative has been informed of the risks and benefits of -- and alternatives to -- treatment through a remote evaluation andconsents to proceed with the evaluation remotely. Scribe Attestation: By signing my name below, IPita, attest that this documentation has been prepared under the direction and in the presence of Geraldine Dickinson D.O. Electronically Signed: Pita Annaibalthea. August 10, 2023 9:38 AM. Physician Attestation: IGeraldine DO, personally performed the services described in this documentation. All medical record entries made by the scribe were at my direction and in my presence. I have reviewed the chart and discharge instructions (if applicable) and agree that the record reflects my personal performance and is accurate and complete. Electronically Signed: Geraldine Dickinson DO. * Mahogany Wright RN - 08/10/2023 8:37 AM EDT Items addressed in this encounter: Other VV pre check, name and location verified, aware of tele health visit with A DO Mahogany Dickinson RN August 10, 2023 8:37 AM 8:37 AM documented in this encounterPromedica [facility]11-01-2022 History of Present illness Narrative* Joan Patel PA-C - 04/01/2022 9:36 AM EDT 04/01/2022 Patient presents with: flu shot Immunizations: Flu vaccination SUBJECTIVE: This is a 31 year old that is here today for Above Complaints Patient needs flu vaccination today. Patient is feeling well without other concern. PAST MEDICAL HISTORY Diagnosis Date Irregular menstrual cycle 05/23/2009 Myopia, high Other acne PCOS (polycystic ovarian syndrome) ALLERGIES Amoxicillin and Penicillin MEDICATIONS Current Outpatient Medications Medication Sig medroxyPROGESTERone (PROVERA) 10 mg tablet Take 1 tablet by mouth once daily. (Patient not taking: Reported on 03/31/2022) No current facility-administered medications for this visit. SOCIAL HISTORY Social History Tobacco Use Smoking status: Never Smokeless tobacco: Never Substance Use Topics Alcohol use: Yes Alcohol/week: 7.5 standard drinks Types: 3 Cans of Beer (12oz) per week Comment: Occasionally Drug use: No REVIEW OF SYSTEMS See HPI OBJECTIVE: BP 102/64 Pulse 82 Temp 36.6 C (97.9 F) Resp 21 Wt 92.7 kg (204 lb 6.4 oz) LMP 10/08/2016(Exact Date) SpO2 97% BMI 30.18 kg/m APPEARANCE Well appearing, alert, in no acute distress, well-hydrated, well nourished. documented in this encounterPromedica [facility]12-23-2009 History of Past illness Narrative* Problem Noted Date Resolved Date Irregular menstrual cycle 05/23/20092009 NEVOCELLULAR NEVI MOLES///BENIGN CODIE SKIN TRUNK 12/14/2008 09/04/2014 NEVOCELLULAR NEVI MOLES///BENIGN CODIE SKIN ARM 09/04/2014 NEVOCELLULAR NEVI MOLES//BENIGN CODIE SKIN LEG 09/04/2014 SOLAR LENTIGENES//DYSCHROMIA OTHER 12/14/2008 09/04/2014 ACTINIC DAMAGE///CHR SOLAR SKIN DAMAGE NOS 12/1409/04/2014 documented as of this encounter (statuses as of 04/01/2022) [facility] History of Past illness Narrative* Problem Noted Date Diagnosed Date Resolved Date Irregular menstrual cycle 05/23/2009 NEVOCELLULAR NEVI MOLES///BE NIGN CODIE SKIN TRUNK 12/14/2008 09/04/2014 NEVOCELLULAR NEVI MOLES///BENIGN CODIE SKIN ARM 12/15/19 09 09/04/2014 NEVOCELLULAR NEVI MOLES//BENIGN CODIE SKIN LEG 200 9 09/04/2014 SOLAR LENTIGENES//DYSCHROMIA OTHER 12/14/2008 09/04/2014 ACTINIC DAMAGE///CHR SOLAR SKIN DAMAGE NOS 12/14/2008 09/04/2014 documented as of this encounter (statuses as of 08/12/2023) [facility] note* Diagnosis Onset Date Resolution Status Encounter for routine gynecological examination noneactive [facility] Work Phone: evaluation note* Diagnosis Need for influenza vaccination- Primary Need for prophylactic vaccination and inoculation against influenza documented in this encounter [facility] note* Diagnosis Onset Date Resolution Status PCOS (polycystic ovarian syndrome) chronic [facility] Work Phone: evaluation note* Diagnosis Preventative health care- Primary Routine general medical examination at a health care facility Special screening examination for viral disease Special screening examination for unspecified viral disease Allergy to penicillin Personal history of allergy to penicillin documented in this encounter [facility] note* Diagnosis Encounter for dietary counseling and surveillance- Primary Dietary surveillance and counseling documented in this encounter [facility] note* Diagnosis Encounter to establish care- Primary Other reasons for seeking consultation documented in this encounter [facility] note* Diagnosis Encounter for gynecological examination (general) (routine) without abnormal findings- Primary Encounter to establish care Other reasons for seeking consultation Screening for cervical cancer Screening for malignant neoplasm of the cervix Encounter for screening for human papillomavirus (HPV) Special screening examination for human papillomavirus (HPV) Encounter for screening mammogram for malignant neoplasm of breast Other screening mammogram Family hx-breast malignancy Family history of malignant neoplasm of breast documented in this encounter [facility] note* Diagnosis Encounter for screening mammogram for malignant neoplasm of breast Other screening mammogram Family hx-breast malignancy Family history of malignant neoplasm of breast documented in this encounter [facility] note* Diagnosis Onset Date Resolution Status Admit Date Encounter for routine gynecological examination noneactive Octobe r 2024 11:10am [place] [employer] Work Phone: Reason for referral (narrative)* Diagnostic Procedure Only (Routine) - Authorized Specialty Diagnoses / Procedures Referred By Sylvia rinaldi Referred To Contact [facility] Diagnoses Encounter for screening mammogram for malignant neoplasm of breast Family hx-breast malignancy Procedures MIRANDA SCREENING W GINA SCREENING DIGITAL BREAST TOMOSYNTHESIS BI SCREENING MAMMOGRAPHY BI 2-VIEW BREAST INC Suzette Babcock, [place] [employer] ASS[employer] [address] [place] [address] [facility] [place] [address] Referral ID Status Reason Start Date Expiration Date Visits Requested Visits Authorized [id number] Authorized Auto-Generat ed Referral 06/09/2024 07/09/2025 1 1 [facility] for referral (narrative)No reason for referral information availableFranciscan Health [facility] Work Phone: Reason for visit Narrative* Diagnostic Procedure Only (Routine) - Closed Specialty Diagnoses / Procedures Referred By Contac t Referred To Contact [facility] Diagnoses Encounter for screening mammogram for malignant neoplasm of breast Family hx-breast malignancy Procedures MIRANDA SCREENING W GINA SCREENING DIGITAL BREAST TOMOSYNTHESIS BI SCREENING MAMMOGRAPHY BI 2-VIEW BREAST INC Suzette Babcock APRN.CNP [address] [place] [address] Phone: tel: fax: [place] [address] Referral ID Status Reason Start Date Expiration Date V isits Requested Visits Authorized [id number] Closed Auto-Generate d Referral 06/09/2024 07/09/2025 1 1 [facility] Summary Purpose Family History No Family History Records Found Relationship Condition Age at Onset Recorded Date/T sanjana Not Specified Malignant neoplasm of breast Unknown mother Disorder of thyroid Unknown Advance Directives No Advanced Directives Records FoundNo Advanced Directives Records FoundNo Advanced Directives Records FoundNo Advanced Directives Records Found Chief Complaint and Reason for Visit Chief Complaint Amb Documentation Annual (SPORTS MEDIA) SCREENING, FAMILY HISTORY Reason for Visit Encounter for routin e gynecological examination Chief Complaint Annual (SPORTS MEDIA) SCREENING, FAMILY HISTORY INT ORDERS Reason for Visit Encounter for routin e gynecological examination Chief Complaint Consult PCOS/fertili ty Reason for Visit PCOS (polycystic ova jae syndrome) Chief Complaint Admit Date Annual (SPORTS MEDIA) March 03, 2025 11 :10am Reason for Visit Admit Date Encounter for routine gynecological exam ination March 03, 2025 11:10am Chief Complaint Admit Date Annual (SPORTS MEDIA) March 03, 2025 11 :10am [place] March 03, 2025 12 :48pm Reason for Visit Admit Date PCOS (polycystic ovarian syndrome) Octob 2024 11:10am Encounter for routine gynecological exam ination March 03, 2025 11:10am Reason for Referral Specialty Diagnoses / Procedures Referred By Sylvia rinaldi Referred To Contact Diagnoses Preventative health care Procedures CONSULT TO ASSEMBLER FINAL OFFICE/OUTPATIENT [facility] 60 MINUTES Geraldine Dickinson, [address] [place] [address] Referral ID Status Reason Start Date Expiration Date Visits Requested Visits Authorized [id number] Authorized PCP Requested Referral Auto-Generate d Referral 08/10/2023 08/09/2024 1 1 Specialty Diagnoses / Procedures Referred By Sylvia rinadli Referred To Contact Diagnoses Encounter to establish care Procedures CONSULT TO ASSEMBLER FINAL OFFICE/OUTPATIENT [facility] 60 MINUTES Geraldine Dickinson, [address] [place] [address] Referral ID Status Reason Start Date Expiration Date Visits Requested Visits Authorized [id number] Authorized PCP Requested Referral Auto-Generate d Referral 04/19/2025 1 1 Additional Source Comments INFORMATION SOURCE (unrecogn ized section and content) DATE CREATED AUTHOR [facility] DATE CREATED AUTHOR AUTHOR'S ORGANIZ ATION 2024 [facility] DATE CREATED AUTHOR AUTHOR'S ORGANIZ ATION 10/05/2024 [facility] DATE CREATED AUTHOR AUTHOR'S ORGANIZ ATION 04/11/2025 [facility] Goals (unrecognized section and content) Goals may be documented in a n alternate sectionGoals may be documented in an alternate sectionGoals may be documented in an alternate sectionGoals may be documented in an alternate sectionGoals may be documented in an alternate section Source Comments (unrecognize d section and content) In the event this informatio n is protected by the Federal Confidentiality of Alcohol and Drug Abuse Patient Records regulations: The Federal rules restrict any use of the information to criminally investigate or prosecute any alcohol or drug abuse patient.[facility] Hospital[facility] the event this information is protected by the Federal Confidentiality of Alcohol and Drug Abuse Patient Records regulations: The Federal rules restrict any use of the information to criminally investigate or prosecute any alcohol or drug abuse patient.[facility] HospitalIn the event this information is protected by the Federal Confidentiality of Alcohol and Drug Abuse Patient Records regulations: The Federal rules restrict any use of the information to criminally investigate or prosecute any alcohol or drug abuse patient.[facility] HospitalIn the event this information is protected by the Federal Confidentiality of Alcohol and Drug Abuse Patient Records regulations: The Federal rules restrict any use of the information to criminally investigate or prosecute any alcohol or drug abuse patient.[facility] HospitalIn the event this information is protected by the Federal Confidentiality of Alcohol and Drug Abuse Patient Records regulations: The Federal rules restrict any use of the information to criminally investigate or prosecute any alcohol or drug abuse patient.[facility] HospitalIn the event this information is protected by the Federal Confidentiality of Alcohol and Drug Abuse Patient Records regulations: The Federal rules restrict any use of the information to criminally investigate or prosecute any alcohol or drug abuse patient.[facility] HospitalIn the event this information is protected by the Federal Confidentiality of Alcohol and Drug Abuse Patient Records regulations: The Federal rules restrict any use of the information to criminally investigate or prosecute any alcohol or drug abuse patient.[facility] HospitalIn the event this information is protected by the Federal Confidentiality of Alcohol and Drug Abuse Patient Records regulations: The Federal rules restrict any use of the information to criminally investigate or prosecute any alcohol or drug abuse patient.[facility] HospitalIn the event this information is protected by the Federal Confidentiality of Alcohol and Drug Abuse Patient Records regulations: The Federal rules restrict any use of the information to criminally investigate or prosecute any alcohol or drug abuse patient.[facility] HospitalIn the event this information is protected by the Federal Confidentiality of Alcohol and Drug Abuse Patient Records regulations: The Federal rules restrict any use of the information to criminally investigate or prosecute any alcohol or drug abuse patient.[facility] HospitalIn the event this information is protected by the Federal Confidentiality of Alcohol and Drug Abuse Patient Records regulations: The Federal rules restrict any use of the information to criminally investigate or prosecute any alcohol or drug abuse patient.[facility] Reason for Visit (unrecogniz ed section and content) Reason Onset Date Comments flu shot Immunizations 03/31/2022 Flu vaccination Specialty Diagnoses / Procedures Referred By Contac t Referred To Contact Family Medicine / [facility] Diagnoses Need for influenza vaccination flu shot Procedures OFFICE/OUTPATIENT ESTABLISHED MOD MDM 30-39 MIN EST SAME DAY Self Joan Patel PA-C [address] [place] [address] Referral ID Status Reason Start Date Expiration Date Visits Re quested Visits Authorized [id number] Closed 03/31/2022 05/31/2022 1 1 Reason Comments Establish Care Healthy Start EPH Reason Comments EHP Weight/BP/Height check Reason Onset Date Comments Weight Problem 03/31/2024 Reason Comments Well Woman Specialty Diagnoses / Procedures Referred By Sylvia t Referred To Contact Diagnoses Encounter to establish care Procedures CONSULT TO ASSEMBLER FINAL OFFICE/OUTPATIENT [facility] 60 MINUTES Geraldine Dickinson DO [address] [place] [address] Referral ID Status Reason Start Date Expiration Date V isits Requested Visits Authorized [id number] Closed PCP Requested Referral Auto-Generated Referral 04/19/2024 04/19/2025 1 1 Reason Onset Date Comments [employer] Weight Management 06/14/2024 Care Teams (unrecognized sec tion and content) Powder Core Tester Relationship Specialty Start Date End Date Irlanda Doran MD [address] [place] [address] PCP - General Internal Medicine 03/31/22 Team Status: Active Member Role Status Dates Dr. Irlanda Doran MD Primary Care Provider Active Team Status: Inactive Member Role Status Dates Dr. Irlanda Doran MD Primary Care Provider, Refer ring Provider Active Dr. Barbara Prince DO Attending Provider Activ e Team Status: Inactive Member Role Status Dates Dr. Irlanda Doran MD Primary Care Provider Active Dr. Barbara Prince DO Attending Provider, Refe rring Provider Active Powder Core Tester Relationship Specialty Start Date End Date Irlanda Doran MD [address] [place] [address] PCP - General Internal Medicine 03/31/22 Powder Core Tester Relationship Specialty Start Date End Date Irlanda Doran MD [address] [place], [place] [address] [phone] PCP - General Internal Medicine 03/31/22 Powder Core Tester Relationship Specialty Start Date End Date Irlanda Doran MD [address] [place] [address] PCP - General Internal Medicine 03/31/22 Powder Core Tester Relationship Specialty Start Date End Date Irlanda Doran MD [address] [place] [address] PCP - General Internal Medicine 03/31/22 Lilliam Morales, RN [facility] Marine Equipment Preservation Inspector 03/31/24 Powder Core Tester Relationship Specialty Start Date End Date Irlanda Doran MD [address] [place] [address] PCP - General Internal Medicine 03/31/22 Lilliam Morales, RN [facility] Marine Equipment Preservation Inspector 03/31/24 Powder Core Tester Relationship Specialty Start Date End Date Irlanda Doran MD [address] [place] [address] PCP - General Internal Medicine 03/31/22 Lilliam Morales, RN [facility] Marine Equipment Preservation Inspector 03/31/24 Powder Core Tester Relationship Specialty Start Date End Date Irlanda Doran MD [address] [place] [address] PCP - General Internal Medicine 03/31/22 Powder Core Tester Relationship Specialty Start Date End Date Irlanda Doran MD [address] [place] [address] PCP - General Internal Medicine 03/31/22 Maegan Pickard, [facility] NO FORWARDING ADDRESS [facility] Marine Equipment Preservation Inspector Education Services 06/14/24 Powder Core Tester Relationship Specialty Start Date End Date Irlanda Doran MD [address] [place] [address] PCP - General Internal Medicine 03/31/22 BramwellMaegan walls , [facility] ED NO FORWARDING ADDRESS P Marine Equipment Preservation Inspector Education Services 06/14/24 Powder Core Tester Relationship Specialty Start Date End Date Irlanda Doran MD [address] [place] [address] PCP - General Internal Medicine 03/31/22 Maegan Pickard, [facility] ED [address] [place] [address] [facility] Marine Equipment Preservation Inspector Education Services 06/14/24 Team Status: Active Member Role/Relationship Status Dates Dr. Irlanda Doran MD Primary care physician Activ e Team Status: Inactive Member Role/Relationship Status Dates Dr. Irlanda Doran MD Primary care physician Activ e Start: March 03, 2025 End: March 03, 2025 Dr. Irlanda Doran MD Referring Provider Active Start: March 03, 2025 End: March 03, 2025 Dr. Barbara Prince DO Attending physician Acti ve Start: March 03, 2025 End: March 03, 2025 Team Status: Active Member Role/Relationship Status Dates Araceli REYEZ, [employer]LING B[employer]-C Primary care physician Acti ve Team Status: Inactive Member Role/Relationship Status Dates Araceli REYEZ, [employer] WE[employer]HER [employer]ER-C Primary care physician Acti ve Start: March 03, 2025 End: March 03, 2025 Dr. Barbara Prince DO Attending physician Acti ve Start: March 03, 2025 End: March 03, 2025 Dr. Barbara Prince DO Referring Provider Activ e Start: March 03, 2025 End: March 03, 2025 FOR RECORDS PERTAINING TO PATIENTS WHO ARE OR HAVE BEEN ENROLLED IN A CHEMICAL DEPENDENCY/SUBSTANCEABUSE PROGRAM, SOME INFORMATION MAY BE OMITTED. This clinical summary was aggregated from multiple sources. Caution should be exercised in using it in the provision of clinical care. This summary normalizes information from multiple sources, and as a consequence, information in this document may materially change the coding, format and clinical context of patient data. In addition, data may be omitted in some cases. CLINICAL DECISIONS SHOULD BE BASED ON THE PRIMARY CLINICAL RECORDS. [facility] [employer] [facility]. provides no warranty or guarantee of the accuracy or completeness of information in this document.
[2025-04-22 04:07] LABS: PROGESTERONE 20.1 ng/mL (.)
== END | disposition home or self-care (01) ==
PROVIDERS: PCP Nurse Practitioner Family; Referring Provider Obstetrics & Gynecology; Visit Provider Obstetrics & Gynecology
DX: E28.2 Polycystic ovarian syndrome (principal); N92.6 Irregular menstruation, unspecified
CPT/HCPCS: 36415; 84144